=== PATIENT | male | born 1935 | race Caucasian/White ===

== ENCOUNTER 2019-11-15 00:32 | Emergency (ER) | payer BC ==
[~2019-11-15] VITALS: Ht 180.3 cm; Wt 77.2 kg
[~2019-11-15 00:32] MED LIST: CEPH-571 PO; HYDR-4383 PO
[2019-11-15] MEDS ORDERED: LIDOcaine Viscous 15ml cup MM PRN (01:10)
--- NOTE | 2019-11-15 01:40 | NUR ---
PT AMBULATED TO BATHROOM WITH NO DIFFICULTY
[2019-11-15 02:34] VITALS: BP 171/73
== END 2019-11-15 02:38 | disposition home or self-care (01) ==
LOC: ER 00:33
DX: R13.10 Dysphagia, unspecified (principal); I25.10 Atherosclerotic heart disease of native coronary artery without angina pectoris; E78.00 Pure hypercholesterolemia, unspecified; Z79.2 Long term (current) use of antibiotics; Z79.899 Other long term (current) drug therapy; Z98.61 Coronary angioplasty status
CPT/HCPCS: 70360; 71046; 99282; 99283

== ENCOUNTER 2021-09-28 04:52 | Emergency (ER) | payer BC ==
[~2021-09-28] VITALS: Ht 180.3 cm; Wt 70.5 kg
[2021-09-28 05:54] LABS: BASOPHILS # (AUTO) 0.1 X10'3 (0-0.2); BASOPHILS % (AUTO) 0.9 % (0-1); EOSINOPHILS % (AUTO) 0 % (0-6); HEMATOCRIT 29.6 % (42.0-52.0); HEMOGLOBIN 10.3 g/dl (14.0-17.9); LYMPHOCYTES # (AUTO) 1.4 X10'3 (1.1-4.8); LYMPHOCYTES % (AUTO) 16.9 % (21-51); MEAN CORPUSCULAR HEMOGLOBIN 34.9 PG (27.0-31.0); MEAN CORPUSCULAR HGB CONC 34.6 g/dL (33.0-36.5); MEAN CORPUSCULAR VOLUME 100.9 FL (78-98); MEAN PLATELET VOLUME 9.1 FL (7.4-10.4); MONOCYTES # (AUTO) 0.8 X10'3 (0-0.9); MONOCYTES % (AUTO) 9.5 % (2-12); NEUTROPHILS # (AUTO) 5.9 X10'3 (1.8-7.7); NEUTROPHILS % (AUTO) 72.7 % (42-75); PLATELET COUNT 205 X10'3 (140-440); RED BLOOD COUNT 2.93 X10'6 (4.70-6.10); WHITE BLOOD COUNT 8.1 X10'3 (4.5-11.0)
[2021-09-28 06:01] LABS: ALBUMIN 3.1 G/DL (3.4-5.0); ANION GAP 12 (8-16); BLOOD UREA NITROGEN 19 MG/DL (7-18); CALCIUM 8.2 MG/DL (8.5-10.1); CHLORIDE 105 MMOL/L (99-107); CREATININE 1.27 MG/DL (0.60-1.10); GLUCOSE 104 MG/DL (70-104); POTASSIUM 3.8 MMOL/L (3.5-5.1); SODIUM 144 MMOL/L (135-145); TOTAL CARBON DIOXIDE 26.8 MMOL/L (24-32); eGFR 54 ML/MIN
[2021-09-28 06:02] LABS: PARTIAL THROMBOPLASTIN TIME 26 SECONDS (22-32)
[2021-09-28 08:00] VITALS: BP 139/64
--- NOTE | 2021-09-28 09:21 | NUR ---
MENTAL HEALTH ROSELIA BUNCH AT BEDSIDE.
--- NOTE | 2021-09-28 12:28 | NUR ---
CALL TO CATHERINE MCNEILL FOR UPDATE ON WHEELCHAIR AND RIDE HOME FOR PATIENT. PER CHARITO CM IS ON LUNCH AND WILL CALL BACK WITH UPDATE.
--- NOTE | 2021-09-28 12:42 | NUR ---
SPOKE WITH CHARITO ALEXANDER WHO STATED THE WC AND RIDE HOME STILL PENDING.
--- NOTE | 2021-09-28 13:25 | NUR ---
GAVE PATIENT EXTRA HEART HEALTHY MEAL TRAY WHILE WAITING FOR TRANSPORT.
--- NOTE | 2021-09-28 15:01 | NUR ---
SPOKE WITH EMILY GIBBS WHO STATED PATIENT WAITING WC AND THEN SHE WILL WORK ON TRANSPORTATION HOME.
--- NOTE | 2021-09-28 15:28 | NUR ---
WHEELCHAIR DELIVERED TO BEDSIDE, PATIENT EDUCATED ON USE OF WHEELCHAIR, VERBALIZED UNDERSTANDING, BERNIE DIAZ MADE AWARE AND WILL WORK ON TRANSPORTATION HOME.
--- NOTE | 2021-09-28 15:48 | NUR ---
AT 1800 [facility] WILL BE ARIVING TO TRANSPORT PT
--- NOTE | 2021-09-28 16:02 | NUR ---
Patient has transport set up with [facility] at 1800, notified primary nurse
--- NOTE | 2021-09-28 16:02 | NUR ---
Patient w/c delivered at bedside
== END 2021-09-28 17:16 | disposition home or self-care (01) ==
LOC: ER 04:53
DX: M25.551 Pain in right hip (principal); R42 Dizziness and giddiness; I25.10 Atherosclerotic heart disease of native coronary artery without angina pectoris; E78.00 Pure hypercholesterolemia, unspecified; Z85.038 Personal history of other malignant neoplasm of large intestine; Z98.890 Other specified postprocedural states; Z79.2 Long term (current) use of antibiotics
CPT/HCPCS: 36415; 71045; 73502; 80048; 85025; 85610; 85730; 99285

== ENCOUNTER 2022-10-06 12:20 | Inpatient (IN) | payer BC ==
[~2022-10-06] VITALS: Ht 180.3 cm; Wt 66.8 kg
[2022-10-06] MEDS ORDERED: morphine 4 MG/ML inj SYRINge IV ONE (14:10)
[2022-10-06] MEDS ORDERED: ondansetron/PF 4mg/2ml inj IV ONE (14:10)
[2022-10-06 14:41] LABS: BASOPHILS % (AUTO) 0.5 % (0-1); EOSINOPHILS # (AUTO) 0.1 X10'3 (0-0.9); EOSINOPHILS % (AUTO) 1.2 % (0-6); HEMATOCRIT 29.7 % (42.0-52.0); LYMPHOCYTES # (AUTO) 1.7 X10'3 (1.1-4.8); LYMPHOCYTES % (AUTO) 19.1 % (21-51); MEAN CORPUSCULAR HEMOGLOBIN 34.5 PG (27.0-31.0); MEAN CORPUSCULAR HGB CONC 33.9 g/dL (33.0-36.5); MEAN PLATELET VOLUME 9.5 FL (7.4-10.4); MONOCYTES # (AUTO) 0.6 X10'3 (0-0.9); MONOCYTES % (AUTO) 6.5 % (2-12); NEUTROPHILS # (AUTO) 6.4 X10'3 (1.8-7.7); NEUTROPHILS % (AUTO) 72.7 % (42-75); PLATELET COUNT 159 X10'3 (140-440); RED BLOOD COUNT 2.91 X10'6 (4.70-6.10); RED CELL DISTRIBUTION WIDTH 12.3 % (11.5-14.5); WHITE BLOOD COUNT 8.8 X10'3 (4.5-11.0)
[2022-10-06 14:58] LABS: APTT 25 SECONDS (22-32)
[2022-10-06 15:14] LABS: ALANINE AMINOTRANSFERASE 23 U/L (12-78); ALBUMIN 3.6 G/DL (3.4-5.0); ALBUMIN/GLOBULIN RATIO 1.1 (1.1-1.5); ALKALINE PHOSPHATASE 90 IU/L (46-116); ANION GAP 5 (8-16); ASPARTATE AMINO TRANSFERASE 24 U/L (10-37); BILIRUBIN,TOTAL 0.5 MG/DL (0.1-1.0); BLOOD UREA NITROGEN 33 MG/DL (7-18); BUN/CREATININE RATIO 20.5 (5.4-32.0); CALCIUM 8.8 MG/DL (8.5-10.1); CHLORIDE 103 MMOL/L (99-107); CREATININE 1.61 MG/DL (0.60-1.10); GLUCOSE 116 MG/DL (70-104); POTASSIUM 4.4 MMOL/L (3.5-5.1); SODIUM 140 MMOL/L (135-145); TOTAL CARBON DIOXIDE 31.6 MMOL/L (24-32); eGFR 41 ML/MIN
[2022-10-06] MEDS ORDERED: LEVO50TA8 PO (16:09)
[2022-10-06] MEDS ORDERED: LISI1TAB53 PO (16:09)
[2022-10-06] MEDS ORDERED: CARV6.2553 PO (16:09)
[2022-10-06] MEDS ORDERED: morphine 2 MG/ML inj. syringe IV PRN ×2 (16:20)
[2022-10-06] MEDS ORDERED: acetaminophen 325mg tablet PO PRN (16:20)
[2022-10-06] MEDS ORDERED: ondansetron/PF 4mg/2ml inj IV PRN (16:20)
[2022-10-06] MEDS ORDERED: mag hydrox/Alum hydrox/simeth 30ml oral suspension PO PRN (16:20)
[2022-10-06] MEDS ORDERED: LIDOcaine 2% 10ml TOPICAL JELLY (Urojet) TP ONE (17:55)
[2022-10-06 18:24] LABS: CLARITY,URINE CLEAR (Clear); COLOR,URINE YELLOW (Yellow); GLUCOSE, URINE NEGATIVE (Neg); KETONES,URINE TRACE mg/dl (Neg); LEUKOCYTE ESTERASE ,URINE NEGATIVE (Neg); NITRITES, URINE NEGATIVE (Neg); OCCULT BLOOD,URINE MODERATE (Neg); PH,URINE 6.5 (4.8-8.0); PROTEIN,URINE NEGATIVE (Neg); UROBILINOGEN,URINE 0.2 E.U/dL (0.2-1.0)
[2022-10-06 18:36] LABS: UA COLLECTION TYPE STRAIGHT CATH
[2022-10-06 18:41] LABS: BACTERIA,URINE FEW /HPF (Neg); RBC,URINE 20-50 /HPF (0-2); SQUAMOUS EPITHELIAL CELL,UR FEW /LPF (FEW)
[2022-10-06] MEDS: HYDROcodone/acetaminophen 5mg/325mg tablet PO PRN ×2 (18:43→22:51)
[2022-10-06] MEDS: docusate sod 100mg capsule PO SCH (18:43)
[2022-10-06] MEDS: carvedilol 6.25mg tablet PO SCH (18:44)
--- NOTE | 2022-10-06 19:07 | NUR ---
PT ATE 90% OF CYNTHIA MEAL FOR A TOTAL OF 40 GM OF CARB
[2022-10-06 20:45] VITALS: BP 131/63
--- NOTE | 2022-10-06 20:45 | NUR ---
PATIENT ADMITTED TO ROOM 340B FROM ER FOR HIP FRACTURE. PLACED COMFORTABLE IN BED. VITAL SIGNS TAKEN AND RECORDED.
[2022-10-06 23:00] VITALS: BP 111/50
[2022-10-07] VITALS (25 sets, daily range): BP systolic 113–174; BP diastolic 55–109
--- NOTE | 2022-10-07 06:25 | NUR ---
Problems reprioritized. Patient report given, questions answered & plan of care reviewed with JAQUAN ANTHONY.
--- NOTE | 2022-10-07 06:30 | NUR ---
Patient in room [facility]JON 340. I have received report from Ozzy ANTHONY and had the opportunity to ask questions and assume patient care.
[2022-10-07 06:59] LABS: BASOPHILS # (AUTO) 0.1 X10'3 (0-0.2); BASOPHILS % (AUTO) 0.6 % (0-1); EOSINOPHILS # (AUTO) 0.3 X10'3 (0-0.9); EOSINOPHILS % (AUTO) 3.4 % (0-6); HEMATOCRIT 26.4 % (42.0-52.0); LYMPHOCYTES # (AUTO) 1.9 X10'3 (1.1-4.8); LYMPHOCYTES % (AUTO) 20.1 % (21-51); MEAN CORPUSCULAR HEMOGLOBIN 34.6 PG (27.0-31.0); MEAN CORPUSCULAR HGB CONC 34.2 g/dL (33.0-36.5); MEAN CORPUSCULAR VOLUME 101.4 FL (78-98); MEAN PLATELET VOLUME 9.5 FL (7.4-10.4); MONOCYTES # (AUTO) 0.8 X10'3 (0-0.9); MONOCYTES % (AUTO) 8.5 % (2-12); NEUTROPHILS # (AUTO) 6.5 X10'3 (1.8-7.7); NEUTROPHILS % (AUTO) 67.4 % (42-75); PLATELET COUNT 127 X10'3 (140-440); RED BLOOD COUNT 2.61 X10'6 (4.70-6.10); RED CELL DISTRIBUTION WIDTH 11.9 % (11.5-14.5); WHITE BLOOD COUNT 9.6 X10'3 (4.5-11.0)
[2022-10-07 07:09] LABS: ALBUMIN 3.1 G/DL (3.4-5.0); ANION GAP 5 (8-16); BLOOD UREA NITROGEN 33 MG/DL (7-18); BUN/CREATININE RATIO 20.5 (5.4-32.0); CALCIUM 8.6 MG/DL (8.5-10.1); CHLORIDE 103 MMOL/L (99-107); CREATININE 1.61 MG/DL (0.60-1.10); GLUCOSE 111 MG/DL (70-104); POTASSIUM 4.1 MMOL/L (3.5-5.1); SODIUM 137 MMOL/L (135-145); TOTAL CARBON DIOXIDE 29.2 MMOL/L (24-32); eGFR 41 ML/MIN
[2022-10-07] MEDS: docusate sod 100mg capsule PO SCH ×2 (07:35→19:43)
[2022-10-07] MEDS: levoTHYROXINE 25mcg tablet PO SCH (07:35)
[2022-10-07] MEDS: lisinopril 20mg tablet PO SCH (07:36)
[2022-10-07] MEDS: carvedilol 6.25mg tablet PO SCH ×2 (07:36→19:42)
[2022-10-07] MEDS: HYDROchlorothiazide 25mg tablet PO SCH (07:36)
[2022-10-07] MEDS ORDERED: proCHLORperazine 10 MG/2 ml inj IV PRN (12:50)
[2022-10-07] MEDS ORDERED: ringers solution, lacted 1,000 ML IV SCH (12:50)
[2022-10-07] MEDS ORDERED: hydrALAZINE 20mg/ml inj. IV PRN (12:50)
[2022-10-07] MEDS ORDERED: HYDROmorphone/PF 0.2 MG/ML SYRINGE IV PRN ×2 (12:50)
[2022-10-07] MEDS ORDERED: ondansetron/PF 4mg/2ml inj IV PRN (12:50)
[2022-10-07] MEDS ORDERED: acetaminophen 1,000mg/100ml IV 100 ML IV PRN (12:50)
[2022-10-07] MEDS ORDERED: meperidine/PF 25mg/ml syringe IV PRN (12:50)
[2022-10-07] MEDS ORDERED: labetalol 20mg/4ml (5mg/ml) syringe IV PRN (12:50)
[2022-10-07] MEDS ORDERED: morphine 4 MG/ML inj SYRINge IV PRN (12:50)
[2022-10-07] MEDS ORDERED: morphine 2 MG/ML inj. syringe IV PRN (12:50)
[2022-10-07] MEDS ORDERED: vancomycin 1,000mg inj ONE (14:09)
[2022-10-07] MEDS ORDERED: sevoflurane 250ml liquid IH ONE (14:46)
[2022-10-07] MEDS ORDERED: FENTANYL CITRATE/PF 50 MCG/1 ML VIAL ONE ×2 (14:54→16:04)
--- NOTE | 2022-10-07 14:55 | NUR ---
LOGGING CREW SUPERVISOR documentation: I have reviewed and agree with all interventions, assessments performed and documented by Anabella Varma LVN.
[2022-10-07] MEDS ORDERED: propofol inj 20 ML IV ONE (15:13)
[2022-10-07] MEDS ORDERED: midazolam 1 mg/ML 2ml injection ONE (15:13)
[2022-10-07] MEDS ORDERED: ceFAZolin 1000mg inj ONE ×3 (15:13)
[2022-10-07] MEDS ORDERED: LIDOcaine 2% (20mg/ml) 5ml vial ONE (15:13)
[2022-10-07] MEDS ORDERED: ePHEDrine 50MG/ML INJ. ONE (15:13)
[2022-10-07] MEDS ORDERED: tranexamic acid 100mg/ml inj. ONE (15:16)
[2022-10-07] MEDS ORDERED: dexamethasone sod phosphate 4mg/ml inj. ONE (15:16)
[2022-10-07] MEDS ORDERED: ondansetron/PF 4mg/2ml inj ONE (15:16)
--- NOTE | 2022-10-07 16:44 | NUR ---
Received from OR via HOSPITAL BED, accompanied by Anesthesiologist DR STODDARD and report given by Anesthesiolgist. PT PRESENTS WITH PIV 20G RIGHT FOREARM, LEFT KNEE BRACE WITH ISLAND DRESSING ON LEFT HIP. VSS. Addendum: 10/07/22 at 1658 by Melissa Clarke RN, RN Amended: Links added.
--- NOTE | 2022-10-07 18:55 | NUR ---
Patient arrived back to floor from surgery in his bed. Alert, quiet, post op VS initiated.and dinner order placed. In no obvious pain or distress at this time.
--- NOTE | 2022-10-07 19:06 | NUR ---
Report called to receiving nurse TAMANNA ANTHONY. Transferred via HOSPITAL BED TO ROOM 340B. PT LEFT Belongings IN PT ROOM. BED IN LOW LOCKED POSITION WITH CALL LIGHT IN REACH. ADMIN ASSISTANT DOING POST OP VITALS, TAMANNA ANTHONY AT BEDSIDE INTRODUCING HERSELF. PT CHART AT NURSES STATION. Special Issues communicated to receiving nurse. Addendum: 10/07/22 at 1912 by Melissa Clarke RN RN Amended: Links added.
[2022-10-07] MEDS: HYDROcodone/acetaminophen 5mg/325mg tablet PO PRN (19:40)
[2022-10-07] MEDS: normal saline 1000ml 1,000 ML IV SCH (19:44)
[2022-10-07] MEDS: enoxaparin 30mg/0.3ml syringe SUBCUT SCH (19:47)
[2022-10-08] MEDS: HYDROcodone/acetaminophen 5mg/325mg tablet PO PRN ×2 (00:23→07:47)
--- NOTE | 2022-10-08 06:15 | NUR ---
Problems reprioritized. Patient report given, questions answered & plan of care reviewed with Anabella LEON.
[2022-10-08 07:34] LABS: BASOPHILS % (AUTO) 0.1 % (0-1); EOSINOPHILS % (AUTO) 0.1 % (0-6); HEMATOCRIT 25.4 % (42.0-52.0); HEMOGLOBIN 8.5 g/dl (14.0-17.9); LYMPHOCYTES # (AUTO) 1.3 X10'3 (1.1-4.8); LYMPHOCYTES % (AUTO) 9.3 % (21-51); MEAN CORPUSCULAR HEMOGLOBIN 33.7 PG (27.0-31.0); MEAN CORPUSCULAR HGB CONC 33.4 g/dL (33.0-36.5); MEAN CORPUSCULAR VOLUME 101.1 FL (78-98); MEAN PLATELET VOLUME 9.4 FL (7.4-10.4); MONOCYTES # (AUTO) 1.5 X10'3 (0-0.9); MONOCYTES % (AUTO) 10.4 % (2-12); NEUTROPHILS # (AUTO) 11.3 X10'3 (1.8-7.7); NEUTROPHILS % (AUTO) 80.1 % (42-75); PLATELET COUNT 131 X10'3 (140-440); RED BLOOD COUNT 2.51 X10'6 (4.70-6.10); WHITE BLOOD COUNT 14.1 X10'3 (4.5-11.0)
[2022-10-08] MEDS: carvedilol 6.25mg tablet PO SCH ×2 (07:47→19:09)
[2022-10-08] MEDS: docusate sod 100mg capsule PO SCH ×2 (07:48→19:09)
[2022-10-08] MEDS: lisinopril 20mg tablet PO SCH (07:48)
[2022-10-08] MEDS: levoTHYROXINE 25mcg tablet PO SCH (07:48)
[2022-10-08] MEDS: HYDROchlorothiazide 25mg tablet PO SCH (07:48)
[2022-10-08] MEDS: normal saline 1000ml 1,000 ML IV SCH ×2 (07:49→22:15)
[2022-10-08 09:47] LABS: ANION GAP 10 (8-16); BLOOD UREA NITROGEN 37 MG/DL (7-18); BUN/CREATININE RATIO 19.7 (5.4-32.0); CALCIUM 8.4 MG/DL (8.5-10.1); CHLORIDE 102 MMOL/L (99-107); CREATININE 1.88 MG/DL (0.60-1.10); GLUCOSE 119 MG/DL (70-104); POTASSIUM 3.8 MMOL/L (3.5-5.1); SODIUM 137 MMOL/L (135-145); TOTAL CARBON DIOXIDE 24.8 MMOL/L (24-32); eGFR 34 ML/MIN
--- NOTE | 2022-10-08 17:47 | NUR ---
MATERIALS RESEARCH ENGINEER documentation: I have reviewed and agree with all interventions, assessments performed and documented by Adina Varma LVN.
[2022-10-08 18:00] VITALS: BP 140/66
--- NOTE | 2022-10-08 18:34 | NUR ---
Patient in room DEJON 360. I have received report from Adina and had the opportunity to ask questions and assume patient care.
[2022-10-08] MEDS: enoxaparin 30mg/0.3ml syringe SUBCUT SCH (19:09)
[2022-10-08 22:00] VITALS: BP 106/46
[2022-10-09] VITALS (9 sets, daily range): BP systolic 85–121; BP diastolic 37–55
[2022-10-09] MEDS: normal saline 1000ml 1,000 ML IV SCH (01:29)
[2022-10-09] MEDS: magnesium hydroxide 30ml (MOM) UD suspension PO PRN ×2 (04:57→20:35)
--- NOTE | 2022-10-09 06:02 | NUR ---
Problems reprioritized. Patient report given, questions answered & plan of care reviewed with
--- NOTE | 2022-10-09 06:08 | NUR ---
Problems reprioritized. Patient report given, questions answered & plan of care reviewed with
[2022-10-09 06:35] LABS: BASOPHILS % (AUTO) 0.4 % (0-1); EOSINOPHILS # (AUTO) 0.1 X10'3 (0-0.9); LYMPHOCYTES # (AUTO) 1.7 X10'3 (1.1-4.8); LYMPHOCYTES % (AUTO) 16.8 % (21-51); MEAN CORPUSCULAR HEMOGLOBIN 34.5 PG (27.0-31.0); MEAN CORPUSCULAR HGB CONC 34.3 g/dL (33.0-36.5); MEAN CORPUSCULAR VOLUME 100.7 FL (78-98); MEAN PLATELET VOLUME 9.9 FL (7.4-10.4); MONOCYTES # (AUTO) 1.1 X10'3 (0-0.9); MONOCYTES % (AUTO) 10.5 % (2-12); NEUTROPHILS # (AUTO) 7.4 X10'3 (1.8-7.7); NEUTROPHILS % (AUTO) 71.3 % (42-75); PLATELET COUNT 108 X10'3 (140-440); RED BLOOD COUNT 1.84 X10'6 (4.70-6.10); WHITE BLOOD COUNT 10.3 X10'3 (4.5-11.0)
[2022-10-09 06:41] LABS: ALBUMIN 2.5 G/DL (3.4-5.0); ANION GAP 7 (8-16); BLOOD UREA NITROGEN 40 MG/DL (7-18); CALCIUM 7.9 MG/DL (8.5-10.1); CHLORIDE 105 MMOL/L (99-107); CREATININE 1.82 MG/DL (0.60-1.10); GLUCOSE 116 MG/DL (70-104); POTASSIUM 3.7 MMOL/L (3.5-5.1); SODIUM 137 MMOL/L (135-145); TOTAL CARBON DIOXIDE 25.2 MMOL/L (24-32); eGFR 35 ML/MIN
[2022-10-09 06:47] LABS: HEMATOCRIT 18.5 % (42.0-52.0); HEMOGLOBIN 6.4 g/dl (14.0-17.9)
--- NOTE | 2022-10-09 07:01 | NUR ---
Agree with Erin HOBBIES AND CRAFTS SALES REPRESENTATIVE assessment except where I documented my findings.
--- NOTE | 2022-10-09 07:16 | NUR ---
PAGER ID: [phone] MESSAGE: Pt Yonathan Perry RM 360B Critical HGB 6.4 HCT 18.5, also need blood consent. [facility] [id number]
--- NOTE | 2022-10-09 08:03 | NUR ---
PAGER ID: [phone] MESSAGE: Repeat page Pt Yonathan Perry RM 360B Critical HGB 6.4 HCT 18.5, also need blood consent. [facility] 6599
[2022-10-09] MEDS: docusate sod 100mg capsule PO SCH ×2 (08:06→20:30)
[2022-10-09] MEDS: HYDROchlorothiazide 25mg tablet PO SCH (08:06)
[2022-10-09] MEDS: lisinopril 20mg tablet PO SCH (08:07)
[2022-10-09] MEDS: levoTHYROXINE 25mcg tablet PO SCH (08:07)
[2022-10-09] MEDS: carvedilol 6.25mg tablet PO SCH ×2 (08:07→20:30)
--- NOTE | 2022-10-09 10:04 | NUR ---
notified of pt BP of 86/38 and temp of 99.8 prior to blood transfusion start, instructed to start transfusion. Transfusion started at 0958 With assist of lost charge card clerk
[2022-10-09 14:58] LABS: HEMOGLOBIN 7.8 g/dl (14.0-17.9); MEAN CORPUSCULAR HEMOGLOBIN 33.2 PG (27.0-31.0); MEAN CORPUSCULAR HGB CONC 33.7 g/dL (33.0-36.5); MEAN CORPUSCULAR VOLUME 98.5 FL (78-98); MEAN PLATELET VOLUME 9.6 FL (7.4-10.4); PLATELET COUNT 112 X10'3 (140-440); RED BLOOD COUNT 2.33 X10'6 (4.70-6.10); RED CELL DISTRIBUTION WIDTH 13.2 % (11.5-14.5); WHITE BLOOD COUNT 10.4 X10'3 (4.5-11.0)
--- NOTE | 2022-10-09 15:50 | NUR ---
PAGER ID: [phone] MESSAGE: DANIEL woody rm 360B up to HGB 7.8 HCT 18.5
--- NOTE | 2022-10-09 18:15 | NUR ---
I have reviewed and agree with all interventions, assessments performed, and documented by Adina Penny LVN.
[2022-10-09] MEDS: enoxaparin 30mg/0.3ml syringe SUBCUT SCH (20:00)
--- NOTE | 2022-10-10 | NUR ---
Patient in room DEJON 360. I have received report from CAROLYN Holden and had the opportunity to ask questions and assume patient care. Addendum: 10/10/22 at 0005 by Alon Parra RN Amended: Links added.
--- NOTE | 2022-10-10 00:02 | NUR ---
Problems reprioritized. Patient report given, questions answered & plan of care reviewed with Diana ANTHONY.
--- NOTE | 2022-10-10 00:04 | NUR ---
AGREE WITH REWINDER OPERATOR PHYSICAL ASSESSMENT CHARTED.
--- NOTE | 2022-10-10 00:35 | NUR ---
Pt thought he had a bm, bright care don passed flatus no bm, small bm smear. poc with pillows. Addendum: 10/10/22 at 0109 by Alon Parra RN Amended: Links added.
[2022-10-10] MEDS: normal saline 1000ml 1,000 ML IV SCH ×2 (02:49→14:15)
--- NOTE | 2022-10-10 02:49 | NUR ---
repositioned, pain medication offered, but pt refused. states he is not having pain. Addendum: 10/10/22 at 0250 by Alon Parra RN Amended: Links added.
--- NOTE | 2022-10-10 05:40 | NUR ---
no void pt states can be straight cathed, cacheter inserted 350ml return and still draining, left in to comopletely drain than will remove. Addendum: 10/10/22 at 0541 by Alon Parra RN Amended: Links added.
[2022-10-10 06:00] VITALS: BP 121/54
[2022-10-10 06:32] LABS: ALBUMIN 2.3 G/DL (3.4-5.0); ANION GAP 6 (8-16); BLOOD UREA NITROGEN 38 MG/DL (7-18); BUN/CREATININE RATIO 26.2 (5.4-32.0); CALCIUM 8.1 MG/DL (8.5-10.1); CHLORIDE 106 MMOL/L (99-107); CREATININE 1.45 MG/DL (0.60-1.10); GLUCOSE 124 MG/DL (70-104); POTASSIUM 3.7 MMOL/L (3.5-5.1); SODIUM 139 MMOL/L (135-145); TOTAL CARBON DIOXIDE 26.8 MMOL/L (24-32); eGFR 46 ML/MIN
--- NOTE | 2022-10-10 06:38 | NUR ---
Problems reprioritized. Patient report given, questions answered & plan of care reviewed with RAJ Medina. Addendum: 10/10/22 at 0638 by Alon Parra RN Amended: Links added.
[2022-10-10 06:46] LABS: BASOPHILS % (AUTO) 0.4 % (0-1); EOSINOPHILS # (AUTO) 0.2 X10'3 (0-0.9); HEMOGLOBIN 7.3 g/dl (14.0-17.9); LYMPHOCYTES # (AUTO) 1.4 X10'3 (1.1-4.8); LYMPHOCYTES % (AUTO) 13.2 % (21-51); MEAN CORPUSCULAR HGB CONC 34.6 g/dL (33.0-36.5); MEAN CORPUSCULAR VOLUME 98.5 FL (78-98); MEAN PLATELET VOLUME 10.1 FL (7.4-10.4); MONOCYTES # (AUTO) 0.9 X10'3 (0-0.9); MONOCYTES % (AUTO) 8.2 % (2-12); NEUTROPHILS # (AUTO) 8.1 X10'3 (1.8-7.7); NEUTROPHILS % (AUTO) 76.2 % (42-75); PLATELET COUNT 114 X10'3 (140-440); RED BLOOD COUNT 2.14 X10'6 (4.70-6.10); RED CELL DISTRIBUTION WIDTH 13.2 % (11.5-14.5); WHITE BLOOD COUNT 10.6 X10'3 (4.5-11.0)
[2022-10-10 06:49] LABS: HEMATOCRIT 21.1 % (42.0-52.0)
--- NOTE | 2022-10-10 06:54 | NUR ---
Patient in room DEJON 360. I have received report from MOHAMUD ANTHONY and had the opportunity to ask questions and assume patient care.
--- NOTE | 2022-10-10 07:11 | NUR ---
Page Sent promotional table spacer PAGER ID: [phone] MESSAGE: 360 B TOMI ONEAL HAS CRITICAL H/H OF 7.3.1 THANKS MELISSA
[2022-10-10] MEDS: docusate sod 100mg capsule PO SCH ×2 (07:49→20:47)
[2022-10-10] MEDS: levoTHYROXINE 25mcg tablet PO SCH (07:50)
[2022-10-10] MEDS: lisinopril 20mg tablet PO SCH (07:50)
[2022-10-10] MEDS: HYDROchlorothiazide 25mg tablet PO SCH (07:50)
[2022-10-10] MEDS: carvedilol 6.25mg tablet PO SCH ×2 (07:50→19:58)
--- NOTE | 2022-10-10 09:30 | NUR ---
Page Sent promotional table spacer PAGER ID: [phone] MESSAGE: Page Sent PAGER ID: [phone] MESSAGE: 360 B TOMI ONEAL HAS CRITICAL H/H OF 7.3.1 THANKS MELISSA 2ND PAGE
[2022-10-10 10:00] VITALS: BP 105/45
--- NOTE | 2022-10-10 10:31 | NUR ---
Page Sent PAGER ID: [phone] MESSAGE: 360 B HARTLY PT IS POSITIVE ORTHOSTATICS WELL. MELISSA [id number]
[2022-10-10 11:12] VITALS: BP_SYST 123; BP_SYST 80; BP_DIAS 46; BP_DIAS 62; BP_DIAS 73
--- NOTE | 2022-10-10 11:40 | NUR ---
TALKED TO DR TELLO HE IS AWARE OF PTS H/H AND WAS NOT CONCERED SAID WE WILL SEE WHAT IT IS WITH LAB DRAWS TOMORROW. ALSO MADE AWARE OF ORTHOSTATIC POSITIVE
[2022-10-10 18:00] VITALS: BP 99/54
[2022-10-10] MEDS: enoxaparin 30mg/0.3ml syringe SUBCUT SCH (19:58)
[2022-10-10] MEDS: magnesium hydroxide 30ml (MOM) UD suspension PO PRN (20:47)
[2022-10-10] MEDS: HYDROcodone/acetaminophen 5mg/325mg tablet PO PRN (20:50)
--- NOTE | 2022-10-10 20:53 | NUR ---
pt had a pain of 04/09 i gave him a norco 5
[2022-10-10 22:00] VITALS: BP 157/73
--- NOTE | 2022-10-11 02:52 | NUR ---
Problems reprioritized. Patient report given, questions answered & plan of care reviewed with Katina celeste.
[2022-10-11] MEDS: normal saline 1000ml 1,000 ML IV SCH (03:35)
[2022-10-11] MEDS: HYDROcodone/acetaminophen 5mg/325mg tablet PO PRN (04:04)
[2022-10-11 05:43] LABS: BASOPHILS % (AUTO) 0.3 % (0-1); EOSINOPHILS # (AUTO) 0.2 X10'3 (0-0.9); EOSINOPHILS % (AUTO) 2.3 % (0-6); HEMOGLOBIN 7.1 g/dl (14.0-17.9); LYMPHOCYTES # (AUTO) 1.7 X10'3 (1.1-4.8); MEAN CORPUSCULAR HEMOGLOBIN 33.8 PG (27.0-31.0); MEAN CORPUSCULAR VOLUME 99.3 FL (78-98); MEAN PLATELET VOLUME 9.7 FL (7.4-10.4); MONOCYTES # (AUTO) 0.8 X10'3 (0-0.9); MONOCYTES % (AUTO) 7.7 % (2-12); NEUTROPHILS # (AUTO) 7.2 X10'3 (1.8-7.7); NEUTROPHILS % (AUTO) 72.7 % (42-75); PLATELET COUNT 138 X10'3 (140-440); WHITE BLOOD COUNT 9.8 X10'3 (4.5-11.0)
[2022-10-11 05:56] LABS: ALBUMIN 2.3 G/DL (3.4-5.0); BLOOD UREA NITROGEN 36 MG/DL (7-18); BUN/CREATININE RATIO 25.4 (5.4-32.0); CREATININE 1.42 MG/DL (0.60-1.10); GLUCOSE 118 MG/DL (70-104); TOTAL CARBON DIOXIDE 29.9 MMOL/L (24-32); eGFR 47 ML/MIN
[2022-10-11 06:00] VITALS: BP 171/66
[2022-10-11 06:01] LABS: HEMATOCRIT 20.9 % (42.0-52.0)
[2022-10-11 06:03] LABS: ANION GAP 4 (8-16); CHLORIDE 106 MMOL/L (99-107); POTASSIUM 3.6 MMOL/L (3.5-5.1); SODIUM 140 MMOL/L (135-145)
--- NOTE | 2022-10-11 06:20 | NUR ---
PAGER ID: [phone] MESSAGE: Rehana Surg 5471 Re: Orlando Huff Please call Re: critical H&H 7.11/19.
--- NOTE | 2022-10-11 06:56 | NUR ---
Problems reprioritized. Patient report given, questions answered & plan of care reviewed with
[2022-10-11] MEDS: levoTHYROXINE 25mcg tablet PO SCH (07:13)
[2022-10-11] MEDS: carvedilol 6.25mg tablet PO SCH ×2 (07:13→20:00)
[2022-10-11] MEDS: lisinopril 20mg tablet PO SCH (07:13)
[2022-10-11] MEDS: HYDROchlorothiazide 25mg tablet PO SCH (07:13)
[2022-10-11] MEDS: JUVEN Smoothie Arginine/Glut./Ca2+Bmb (Juven 19.3pkt) 240ml cup PO SCH (07:30)
[2022-10-11] MEDS: docusate sod 100mg capsule PO SCH ×2 (07:33→20:00)
[2022-10-11 10:00] VITALS: BP 97/43
--- NOTE | 2022-10-11 10:21 | NUR ---
Initial: Pt admitted w/ L femoral neck fx s/p L hip hemiarthroplasty this admit per EMR. Currently on Heart Healthy diet w/ avg intake 52% of meals partially meeting est needs. Will recommend Jaquan smoothies BID to assist w/ surgical wound healing. Pt noted to be A&O x 1 and confused. LBM 10/10 receiving routine and PRN bowel care. Will continue to monitor. Recs; 1. Liberalize to Regular diet 2. Jaquan Smoothies BIDBD: pending MD verification 3. Bowel care per rx 4. Weekly wts Addendum: 10/11/22 at [address] Amended: Links added.
[2022-10-11 18:00] VITALS: BP 145/58
--- NOTE | 2022-10-11 18:23 | NUR ---
Problems reprioritized. Patient report given, questions answered & plan of care reviewed with Frances ANTHONY.
[2022-10-11] MEDS: enoxaparin 30mg/0.3ml syringe SUBCUT SCH (20:00)
[2022-10-11 22:00] VITALS: BP 133/61
--- NOTE | 2022-10-11 22:45 | NUR ---
PT STILL SLEEPY BUT EASILY WOKEN UP AND CONFUSED. PER SPECIAL EDUCATION PARA PROFESSIONAL GREGG PT WASN'T LIKE THIS LAST NIGHT.CALLED DR. FRANCIS IF HE WANTED TO CHECK PT FOR COVID,NO NEW ORDER.
[2022-10-12] MEDS: JUVEN Smoothie Arginine/Glut./Ca2+Bmb (Juven 19.3pkt) 240ml cup PO SCH (07:30)
[2022-10-12] MEDS: docusate sod 100mg capsule PO SCH ×2 (08:00→20:00)
[2022-10-12] MEDS: carvedilol 6.25mg tablet PO SCH ×2 (08:37→20:31)
[2022-10-12] MEDS: HYDROchlorothiazide 25mg tablet PO SCH (08:37)
[2022-10-12] MEDS: lisinopril 20mg tablet PO SCH (08:38)
[2022-10-12] MEDS: levoTHYROXINE 25mcg tablet PO SCH (08:38)
[2022-10-12] MEDS: acetaminophen 325mg tablet PO PRN ×2 (08:47→14:54)
[2022-10-12 11:00] VITALS: BP 114/53
[2022-10-12 11:49] LABS: HEMATOCRIT 24.3 % (42.0-52.0); HEMOGLOBIN 8.1 g/dl (14.0-17.9); MEAN CORPUSCULAR HEMOGLOBIN 33.1 PG (27.0-31.0); MEAN CORPUSCULAR HGB CONC 33.2 g/dL (33.0-36.5); MEAN CORPUSCULAR VOLUME 99.6 FL (78-98); MEAN PLATELET VOLUME 9.1 FL (7.4-10.4); PLATELET COUNT 196 X10'3 (140-440); RED BLOOD COUNT 2.44 X10'6 (4.70-6.10); RED CELL DISTRIBUTION WIDTH 12.7 % (11.5-14.5); WHITE BLOOD COUNT 8.7 X10'3 (4.5-11.0)
[2022-10-12 18:00] VITALS: BP 187/64
--- NOTE | 2022-10-12 18:50 | NUR ---
Problems reprioritized. Patient report given, questions answered & plan of care reviewed with Frances ANTHONY.
[2022-10-12] MEDS: enoxaparin 30mg/0.3ml syringe SUBCUT SCH (20:30)
[2022-10-12 22:00] VITALS: BP 121/55
[2022-10-13] MEDS: acetaminophen 325mg tablet PO PRN ×2 (00:47→23:40)
[2022-10-13 02:12] LABS: CLARITY,URINE SLIGHTLY CLOUDY (Clear); COLOR,URINE YELLOW (Yellow); GLUCOSE, URINE NEGATIVE (Neg); KETONES,URINE NEGATIVE (Neg); LEUKOCYTE ESTERASE ,URINE NEGATIVE (Neg); NITRITES, URINE NEGATIVE (Neg); OCCULT BLOOD,URINE SMALL (Neg); PROTEIN,URINE TRACE mg/dl (Neg); UROBILINOGEN,URINE 0.2 E.U/dL (0.2-1.0)
[2022-10-13 02:17] LABS: UA COLLECTION TYPE FOLEY CATH
[2022-10-13 02:20] LABS: SQUAMOUS EPITHELIAL CELL,UR FEW /LPF (FEW)
[2022-10-13 02:21] LABS: AMORPHOUS URATES 3+
[2022-10-13 02:23] LABS: BACTERIA,URINE NONE SEEN /HPF (Neg)
[2022-10-13 06:00] VITALS: BP 128/58
[2022-10-13] MEDS: docusate sod 100mg capsule PO SCH ×2 (08:00→19:37)
[2022-10-13] MEDS: HYDROchlorothiazide 25mg tablet PO SCH (08:12)
[2022-10-13] MEDS: carvedilol 6.25mg tablet PO SCH ×2 (08:12→19:39)
[2022-10-13] MEDS: lisinopril 20mg tablet PO SCH (08:15)
[2022-10-13] MEDS: levoTHYROXINE 25mcg tablet PO SCH (08:16)
[2022-10-13 11:00] VITALS: BP 124/56
[2022-10-13 12:19] LABS: BASOPHILS # (AUTO) 0.1 X10'3 (0-0.2); BASOPHILS % (AUTO) 0.7 % (0-1); EOSINOPHILS # (AUTO) 0.2 X10'3 (0-0.9); EOSINOPHILS % (AUTO) 1.7 % (0-6); HEMATOCRIT 23.6 % (42.0-52.0); HEMOGLOBIN 7.9 g/dl (14.0-17.9); LYMPHOCYTES # (AUTO) 1.8 X10'3 (1.1-4.8); MEAN CORPUSCULAR HEMOGLOBIN 33.6 PG (27.0-31.0); MEAN CORPUSCULAR HGB CONC 33.7 g/dL (33.0-36.5); MEAN CORPUSCULAR VOLUME 99.7 FL (78-98); MEAN PLATELET VOLUME 9.3 FL (7.4-10.4); MONOCYTES # (AUTO) 0.9 X10'3 (0-0.9); MONOCYTES % (AUTO) 9.6 % (2-12); NEUTROPHILS # (AUTO) 6.4 X10'3 (1.8-7.7); PLATELET COUNT 202 X10'3 (140-440); RED BLOOD COUNT 2.37 X10'6 (4.70-6.10); RED CELL DISTRIBUTION WIDTH 12.8 % (11.5-14.5); WHITE BLOOD COUNT 9.3 X10'3 (4.5-11.0)
[2022-10-13 18:00] VITALS: BP 157/67
--- NOTE | 2022-10-13 18:05 | NUR ---
Report to Erin LEON
--- NOTE | 2022-10-13 18:22 | NUR ---
Patient in room DEJON 360. I have received report from Layne and had the opportunity to ask questions and assume patient care.
[2022-10-13] MEDS: enoxaparin 30mg/0.3ml syringe SUBCUT SCH (19:38)
[2022-10-13 22:00] VITALS: BP 154/74
[2022-10-14 06:00] VITALS: BP 159/72
--- NOTE | 2022-10-14 06:22 | NUR ---
Problems reprioritized. Patient report given, questions answered & plan of care reviewed with
--- NOTE | 2022-10-14 06:25 | NUR ---
Patient in room DEJON 360. I have received report from Erin LEON and had the opportunity to ask questions and assume patient care.
--- NOTE | 2022-10-14 06:43 | NUR ---
REVIEWED HUMAN CAPITAL MANAGER ASSESSMENT AND IN AGREEMENT.
[2022-10-14] MEDS: JUVEN Smoothie Arginine/Glut./Ca2+Bmb (Juven 19.3pkt) 240ml cup PO SCH ×2 (07:30→19:36)
[2022-10-14 07:47] LABS: BASOPHILS # (AUTO) 0.1 X10'3 (0-0.2); BASOPHILS % (AUTO) 0.7 % (0-1); EOSINOPHILS # (AUTO) 0.2 X10'3 (0-0.9); EOSINOPHILS % (AUTO) 1.9 % (0-6); HEMATOCRIT 24.4 % (42.0-52.0); HEMOGLOBIN 8.5 g/dl (14.0-17.9); LYMPHOCYTES # (AUTO) 2.1 X10'3 (1.1-4.8); MEAN CORPUSCULAR HEMOGLOBIN 34.5 PG (27.0-31.0); MEAN CORPUSCULAR HGB CONC 34.9 g/dL (33.0-36.5); MEAN CORPUSCULAR VOLUME 98.9 FL (78-98); MEAN PLATELET VOLUME 9.3 FL (7.4-10.4); MONOCYTES # (AUTO) 0.9 X10'3 (0-0.9); MONOCYTES % (AUTO) 8.6 % (2-12); NEUTROPHILS # (AUTO) 6.9 X10'3 (1.8-7.7); NEUTROPHILS % (AUTO) 67.8 % (42-75); PLATELET COUNT 241 X10'3 (140-440); RED BLOOD COUNT 2.47 X10'6 (4.70-6.10); RED CELL DISTRIBUTION WIDTH 12.8 % (11.5-14.5); WHITE BLOOD COUNT 10.2 X10'3 (4.5-11.0)
[2022-10-14] MEDS: docusate sod 100mg capsule PO SCH ×2 (08:00→19:36)
[2022-10-14 08:07] LABS: ALBUMIN 2.7 G/DL (3.4-5.0); BLOOD UREA NITROGEN 31 MG/DL (7-18); BUN/CREATININE RATIO 23.8 (5.4-32.0); CALCIUM 8.6 MG/DL (8.5-10.1); GLUCOSE 111 MG/DL (70-104); TOTAL CARBON DIOXIDE 30.9 MMOL/L (24-32); eGFR 52 ML/MIN
[2022-10-14] MEDS: lisinopril 20mg tablet PO SCH (08:09)
[2022-10-14] MEDS: HYDROchlorothiazide 25mg tablet PO SCH (08:09)
[2022-10-14] MEDS: carvedilol 6.25mg tablet PO SCH ×2 (08:09→19:36)
[2022-10-14] MEDS: levoTHYROXINE 25mcg tablet PO SCH (08:09)
[2022-10-14 08:37] LABS: ANION GAP 7 (8-16); CHLORIDE 104 MMOL/L (99-107); POTASSIUM 3.5 MMOL/L (3.5-5.1); SODIUM 142 MMOL/L (135-145)
[2022-10-14 10:00] VITALS: BP 113/59
--- NOTE | 2022-10-14 17:27 | NUR ---
GAS WELDING EQUIPMENT MECHANIC documentation: I have reviewed and agree with all interventions, assessments performed and documented by Adina Varma LVN .
[2022-10-14 18:00] VITALS: BP 96/61
--- NOTE | 2022-10-14 18:13 | NUR ---
Problems reprioritized. Patient report given, questions answered & plan of care reviewed with Erin LEON.
[2022-10-14] MEDS: enoxaparin 30mg/0.3ml syringe SUBCUT SCH (19:31)
[2022-10-14 22:00] VITALS: BP 145/55
--- NOTE | 2022-10-15 04:07 | NUR ---
Problems and assessment reviewed and in agreement with HINGING MACHINE OPERATOR.
[2022-10-15 06:00] VITALS: BP 104/57
[2022-10-15 06:12] LABS: BASOPHILS # (AUTO) 0.1 X10'3 (0-0.2); BASOPHILS % (AUTO) 0.8 % (0-1); EOSINOPHILS # (AUTO) 0.1 X10'3 (0-0.9); EOSINOPHILS % (AUTO) 0.8 % (0-6); HEMATOCRIT 23.9 % (42.0-52.0); HEMOGLOBIN 8.2 g/dl (14.0-17.9); LYMPHOCYTES # (AUTO) 2.3 X10'3 (1.1-4.8); LYMPHOCYTES % (AUTO) 23.2 % (21-51); MEAN CORPUSCULAR HEMOGLOBIN 33.9 PG (27.0-31.0); MEAN CORPUSCULAR HGB CONC 34.2 g/dL (33.0-36.5); MEAN CORPUSCULAR VOLUME 99.1 FL (78-98); MEAN PLATELET VOLUME 8.9 FL (7.4-10.4); MONOCYTES # (AUTO) 0.8 X10'3 (0-0.9); MONOCYTES % (AUTO) 8.5 % (2-12); NEUTROPHILS # (AUTO) 6.7 X10'3 (1.8-7.7); NEUTROPHILS % (AUTO) 66.7 % (42-75); PLATELET COUNT 282 X10'3 (140-440); RED BLOOD COUNT 2.41 X10'6 (4.70-6.10); RED CELL DISTRIBUTION WIDTH 12.7 % (11.5-14.5)
--- NOTE | 2022-10-15 06:19 | NUR ---
Problems reprioritized. Patient report given, questions answered & plan of care reviewed with Elaine.
[2022-10-15 06:42] LABS: ALBUMIN 2.7 G/DL (3.4-5.0); ANION GAP 11 (8-16); BLOOD UREA NITROGEN 40 MG/DL (7-18); BUN/CREATININE RATIO 27.4 (5.4-32.0); CALCIUM 8.6 MG/DL (8.5-10.1); CHLORIDE 104 MMOL/L (99-107); CREATININE 1.46 MG/DL (0.60-1.10); GLUCOSE 97 MG/DL (70-104); POTASSIUM 3.3 MMOL/L (3.5-5.1); SODIUM 142 MMOL/L (135-145); TOTAL CARBON DIOXIDE 26.7 MMOL/L (24-32); eGFR 45 ML/MIN
[2022-10-15] MEDS: JUVEN Smoothie Arginine/Glut./Ca2+Bmb (Juven 19.3pkt) 240ml cup PO SCH ×3 (07:30→17:30)
[2022-10-15] MEDS: docusate sod 100mg capsule PO SCH ×2 (07:51→20:00)
[2022-10-15] MEDS: HYDROchlorothiazide 25mg tablet PO SCH (07:51)
[2022-10-15] MEDS: carvedilol 6.25mg tablet PO SCH ×2 (07:51→20:00)
[2022-10-15] MEDS: levoTHYROXINE 25mcg tablet PO SCH (07:51)
[2022-10-15 10:00] VITALS: BP 108/63
[2022-10-15] MEDS ORDERED: potassium Cl 20 mEq SR tablet PO PRN ×2 (11:25)
[2022-10-15] MEDS ORDERED: potassium Cl 40MEQ/1/2NS 520ml 520 ML IV PRN (11:25)
[2022-10-15] MEDS ORDERED: magnesium Cl slow-release 64mg tablet PO PRN (11:25)
[2022-10-15] MEDS ORDERED: magnesium 4gm in 100ml NS 100 ML IV PRN (11:25)
--- NOTE | 2022-10-15 16:53 | NUR ---
PATIENT NOT WILLING TO PARTICIPATE IN ANY CARE. MULTIPLE ATTEMPTS BY NURSING STAFF. PT CURRENTLY NPO. Q2H REPOSITIONING BY NURSING STAFF. POTASSIUM INFUSING PER MD ORDER. WILL CONTINUE TO MONITOR PATIENT.
[2022-10-15 18:00] VITALS: BP 122/56
--- NOTE | 2022-10-15 18:48 | NUR ---
Patient in room DEJON 360. I have received report from RAJ BARLOW and had the opportunity to ask questions and assume patient care. Addendum: 10/15/22 at 1849 by Julia Wright RN Amended: Links added.
[2022-10-15] MEDS: K and/or MAG REPLACEMENT MC SCH (20:00)
[2022-10-15] MEDS: enoxaparin 30mg/0.3ml syringe SUBCUT SCH ×2 (20:00→20:03)
[2022-10-15] MEDS: lisinopril 20mg tablet PO SCH (20:07)
[2022-10-15 21:54] LABS: MAGNESIUM 2.3 MG/DL (1.5-2.4)
[2022-10-15 22:00] VITALS: BP 153/75
[2022-10-16 06:00] VITALS: BP 155/62
--- NOTE | 2022-10-16 06:06 | NUR ---
Problems reprioritized. Patient report given, questions answered & plan of care reviewed with RAJ BARLOW. Addendum: 10/16/22 at 0607 by Julia Wright RN Amended: Links added.
[2022-10-16 06:48] LABS: BASOPHILS # (AUTO) 0.1 X10'3 (0-0.2); BASOPHILS % (AUTO) 1.2 % (0-1); EOSINOPHILS # (AUTO) 0.2 X10'3 (0-0.9); HEMATOCRIT 24.7 % (42.0-52.0); HEMOGLOBIN 8.4 g/dl (14.0-17.9); LYMPHOCYTES # (AUTO) 2.3 X10'3 (1.1-4.8); LYMPHOCYTES % (AUTO) 24.7 % (21-51); MEAN CORPUSCULAR HEMOGLOBIN 33.7 PG (27.0-31.0); MEAN CORPUSCULAR VOLUME 99.3 FL (78-98); MEAN PLATELET VOLUME 9.4 FL (7.4-10.4); MONOCYTES # (AUTO) 0.8 X10'3 (0-0.9); MONOCYTES % (AUTO) 8.5 % (2-12); NEUTROPHILS % (AUTO) 63.6 % (42-75); PLATELET COUNT 293 X10'3 (140-440); RED BLOOD COUNT 2.49 X10'6 (4.70-6.10); RED CELL DISTRIBUTION WIDTH 12.8 % (11.5-14.5); WHITE BLOOD COUNT 9.4 X10'3 (4.5-11.0)
[2022-10-16] MEDS: docusate sod 100mg capsule PO SCH ×2 (07:25→20:00)
[2022-10-16] MEDS: HYDROchlorothiazide 25mg tablet PO SCH (07:25)
[2022-10-16] MEDS: carvedilol 6.25mg tablet PO SCH ×2 (07:25→20:00)
[2022-10-16] MEDS: JUVEN Smoothie Arginine/Glut./Ca2+Bmb (Juven 19.3pkt) 240ml cup PO SCH ×2 (07:25→17:30)
[2022-10-16] MEDS: levoTHYROXINE 25mcg tablet PO SCH (07:26)
[2022-10-16] MEDS: K and/or MAG REPLACEMENT MC SCH ×3 (07:26→20:00)
[2022-10-16 07:51] LABS: ALBUMIN 2.7 G/DL (3.4-5.0); ANION GAP 11 (8-16); BLOOD UREA NITROGEN 43 MG/DL (7-18); BUN/CREATININE RATIO 32.1 (5.4-32.0); CALCIUM 8.4 MG/DL (8.5-10.1); CHLORIDE 108 MMOL/L (99-107); CREATININE 1.34 MG/DL (0.60-1.10); GLUCOSE 86 MG/DL (70-104); POTASSIUM 3.7 MMOL/L (3.5-5.1); SODIUM 145 MMOL/L (135-145); TOTAL CARBON DIOXIDE 26.1 MMOL/L (24-32); eGFR 50 ML/MIN
[2022-10-16 10:00] VITALS: BP 129/62
[2022-10-16] MEDS: dextrose 5%-normal saline 1,000 ML IV SCH (11:20)
--- NOTE | 2022-10-16 12:03 | NUR ---
ORTHOSTATIC VITALS BP supine 153/72 BP stand 163/64 BP ambulating 89/49
--- NOTE | 2022-10-16 16:48 | NUR ---
Patient very cooperative with care this shift, agreeable to physical therapy. Q2h repositioning by nursing staff. Scott/skin care performed. Pt is unhappy about not being able to eat or drink. Primary RN performed BSS x3, each time pt has loud coughing despite HOB being > 45 degrees. Pt was pretty emotional, with nursing help, patient left voicemail on home phone for son stating "i feel this is the end and i just want you to know i love you". Will continue to monitor patient and assist with all needs.
[2022-10-16 18:00] VITALS: BP 160/64
--- NOTE | 2022-10-16 18:35 | NUR ---
Problems reprioritized. Patient report given, questions answered & plan of care reviewed with rachell celeste .
--- NOTE | 2022-10-16 18:48 | NUR ---
Patient in room DEJON 360. I have received report from RAJ BARLOW and had the opportunity to ask questions and assume patient care. Addendum: 10/16/22 at 1848 by Julia Wright RN Amended: Links added.
[2022-10-16] MEDS: lisinopril 20mg tablet PO SCH (20:12)
[2022-10-16] MEDS: enoxaparin 30mg/0.3ml syringe SUBCUT SCH (20:18)
[2022-10-16 22:00] VITALS: BP 152/67
[2022-10-17 02:05] VITALS: BP 149/71
[2022-10-17] MEDS: dextrose 5%-normal saline 1,000 ML IV SCH (04:20)
[2022-10-17 06:00] VITALS: BP 165/71
--- NOTE | 2022-10-17 06:48 | NUR ---
Problems reprioritized. Patient report given, questions answered & plan of care reviewed with RAJ ALONZO. Addendum: 10/17/22 at 0648 by Julia Wright RN Amended: Links added.
[2022-10-17 07:06] LABS: BASOPHILS # (AUTO) 0.1 X10'3 (0-0.2); EOSINOPHILS # (AUTO) 0.2 X10'3 (0-0.9); EOSINOPHILS % (AUTO) 1.6 % (0-6); HEMATOCRIT 26.2 % (42.0-52.0); HEMOGLOBIN 8.9 g/dl (14.0-17.9); LYMPHOCYTES % (AUTO) 20.1 % (21-51); MEAN CORPUSCULAR HEMOGLOBIN 33.9 PG (27.0-31.0); MEAN CORPUSCULAR HGB CONC 34.1 g/dL (33.0-36.5); MEAN CORPUSCULAR VOLUME 99.5 FL (78-98); MEAN PLATELET VOLUME 9.3 FL (7.4-10.4); MONOCYTES # (AUTO) 0.8 X10'3 (0-0.9); MONOCYTES % (AUTO) 7.6 % (2-12); NEUTROPHILS % (AUTO) 69.7 % (42-75); PLATELET COUNT 319 X10'3 (140-440); RED BLOOD COUNT 2.64 X10'6 (4.70-6.10); RED CELL DISTRIBUTION WIDTH 12.6 % (11.5-14.5); WHITE BLOOD COUNT 10.1 X10'3 (4.5-11.0)
[2022-10-17] MEDS: JUVEN Smoothie Arginine/Glut./Ca2+Bmb (Juven 19.3pkt) 240ml cup PO SCH ×3 (07:30→17:30)
[2022-10-17] MEDS: K and/or MAG REPLACEMENT MC SCH ×2 (08:00→20:00)
[2022-10-17] MEDS: docusate sod 100mg capsule PO SCH ×2 (08:00→20:18)
[2022-10-17 08:17] LABS: ALBUMIN 2.9 G/DL (3.4-5.0); ANION GAP 10 (8-16); BLOOD UREA NITROGEN 38 MG/DL (7-18); BUN/CREATININE RATIO 30.6 (5.4-32.0); CALCIUM 8.5 MG/DL (8.5-10.1); CHLORIDE 110 MMOL/L (99-107); CREATININE 1.24 MG/DL (0.60-1.10); GLUCOSE 110 MG/DL (70-104); POTASSIUM 3.7 MMOL/L (3.5-5.1); SODIUM 147 MMOL/L (135-145); TOTAL CARBON DIOXIDE 27.5 MMOL/L (24-32); eGFR 55 ML/MIN
--- NOTE | 2022-10-17 09:57 | NUR ---
Reassessment: Pt has been made NPO per PIPE FITTER APPRENTICE recs 10/15, pt unsafe for PO. If pt continues to be unsafe for PO recommend initiation of nutrition support. LBM 10/14. Limited nutrition interventions at this time, will continue to monitor. Recs; 1. Regular diet when cleared per PIPE FITTER APPRENTICE 2. Jaquan Smoothies BIDBD once safe to swallow 3. Bowel care per rx 4. Weekly wts 5. Initiate nutrition support if pt remains unsafe to swallow Addendum: 10/17/22 at [address] Amended: Links added.
[2022-10-17 10:00] VITALS: BP 167/76
[2022-10-17] MEDS: HYDROchlorothiazide 25mg tablet PO SCH (10:24)
[2022-10-17] MEDS: levoTHYROXINE 25mcg tablet PO SCH (10:24)
[2022-10-17] MEDS: carvedilol 6.25mg tablet PO SCH ×2 (10:24→20:18)
[2022-10-17 18:00] VITALS: BP 146/69
--- NOTE | 2022-10-17 18:48 | NUR ---
Patient in room DEJON 360. I have received report from RAJ ALONZO and had the opportunity to ask questions and assume patient care. Addendum: 10/17/22 at 1848 by Julia Wright RN Amended: Links added.
[2022-10-17] MEDS: enoxaparin 30mg/0.3ml syringe SUBCUT SCH (20:17)
[2022-10-17] MEDS: acetaminophen 325mg tablet PO PRN (20:18)
[2022-10-17] MEDS: lisinopril 20mg tablet PO SCH (20:19)
--- NOTE | 2022-10-17 20:30 | NUR ---
pt has oreders ok to keep iv out.
[2022-10-17 22:00] VITALS: BP 97/53
--- NOTE | 2022-10-18 01:30 | NUR ---
pt exhausted resting and holland and hs care done by lead manufacturing engineering tech. earlier in evening pt had ripped off left hip dressing. site looks good and island dressing on clean and dry.
--- NOTE | 2022-10-18 03:00 | NUR ---
administrative support associate WHO HAD PT PRIOR TO SURGERY STATED PT HAD SAID HIS SON IS DEVELOPMENTALLY DISABLED AND THAT HE HAS TO DO THE MEDICATIONS FOR HIS SON HE ALSO HAS MEDICAL PROBLEMS WELL. PT HAS BEEN CONFUSED SINCE SURGERY AND UNABLE TO RELAY THIS. I HAD NOT SEEN THIS INFORMATION IN THE CHART AND DID NOT RECEIVE IT IN ANY REPORT. THE AIDE SAID SHE HAD CARED FOR HIM ON ADMIT AND PRIOR TO SURGERY. SHE DID NOT KNOW THE INFORMATION HAD NOT BEEN RELAYED.
[2022-10-18] MEDS: dextrose 5%-normal saline 1,000 ML IV SCH ×2 (03:15→23:15)
--- NOTE | 2022-10-18 05:53 | NUR ---
pt resting eyes closed without changes.
[2022-10-18 06:00] VITALS: BP 108/51
[2022-10-18 06:17] LABS: BASOPHILS # (AUTO) 0.1 X10'3 (0-0.2); BASOPHILS % (AUTO) 0.8 % (0-1); EOSINOPHILS # (AUTO) 0.1 X10'3 (0-0.9); EOSINOPHILS % (AUTO) 0.7 % (0-6); HEMATOCRIT 24.4 % (42.0-52.0); HEMOGLOBIN 8.3 g/dl (14.0-17.9); LYMPHOCYTES # (AUTO) 1.9 X10'3 (1.1-4.8); LYMPHOCYTES % (AUTO) 18.9 % (21-51); MEAN CORPUSCULAR HEMOGLOBIN 34.2 PG (27.0-31.0); MEAN CORPUSCULAR HGB CONC 34.2 g/dL (33.0-36.5); MEAN PLATELET VOLUME 9.3 FL (7.4-10.4); MONOCYTES # (AUTO) 0.6 X10'3 (0-0.9); NEUTROPHILS # (AUTO) 7.4 X10'3 (1.8-7.7); NEUTROPHILS % (AUTO) 73.6 % (42-75); PLATELET COUNT 317 X10'3 (140-440); RED BLOOD COUNT 2.44 X10'6 (4.70-6.10); RED CELL DISTRIBUTION WIDTH 12.7 % (11.5-14.5)
[2022-10-18 06:42] LABS: ALBUMIN 2.8 G/DL (3.4-5.0); ANION GAP 14 (8-16); BLOOD UREA NITROGEN 39 MG/DL (7-18); BUN/CREATININE RATIO 28.7 (5.4-32.0); CALCIUM 8.5 MG/DL (8.5-10.1); CHLORIDE 107 MMOL/L (99-107); CREATININE 1.36 MG/DL (0.60-1.10); GLUCOSE 100 MG/DL (70-104); POTASSIUM 3.5 MMOL/L (3.5-5.1); SODIUM 145 MMOL/L (135-145); TOTAL CARBON DIOXIDE 23.7 MMOL/L (24-32); eGFR 49 ML/MIN
--- NOTE | 2022-10-18 06:48 | NUR ---
Problems reprioritized. Patient report given, questions answered & plan of care reviewed with RAJ ALONZO. Addendum: 10/18/22 at 0648 by Julia Wright RN Amended: Links added.
[2022-10-18] MEDS: JUVEN Smoothie Arginine/Glut./Ca2+Bmb (Juven 19.3pkt) 240ml cup PO SCH ×2 (07:30→19:35)
[2022-10-18] MEDS: K and/or MAG REPLACEMENT MC SCH ×2 (08:00→19:36)
[2022-10-18] MEDS: levoTHYROXINE 25mcg tablet PO SCH (09:32)
[2022-10-18] MEDS: docusate sod 100mg capsule PO SCH ×2 (09:32→20:07)
[2022-10-18] MEDS: HYDROchlorothiazide 25mg tablet PO SCH (09:32)
[2022-10-18] MEDS: carvedilol 6.25mg tablet PO SCH ×2 (09:32→20:06)
[2022-10-18 10:00] VITALS: BP 114/57
--- NOTE | 2022-10-18 13:03 | NUR ---
Spoke with patient, he says his son is at home and does need help. Is ok at home alone for only a couple of days. Suggested to CM/SS a welfare check may be needed.
--- NOTE | 2022-10-18 15:20 | NUR ---
PRESSURE ULCER EDUCATION: DEFINITION: A pressure ulcer is an area of skin that breaks down when you stay in one position too long. The constant pressure against the skin reduces the blood flow to that area and the affected tissue dies. CAUSES: "Being bedridden or in a wheelchair "Fragile skin "Having a chronic condition, such as diabetes or vascular disease "Inability to move certain parts of your body without assistance "Older age "Incontinence of urine or stool SYMPTOMS: "A reddened area that DOES NOT turn white when pressed on - this can be the beginning of a pressure ulcer "A blister, deep sore or a crater - these can be advanced pressure ulcers FIRST AID: "Relieve the pressure on this area "Keep the area clean and dry "Call your primary doctor if you see any of the above symptoms "DO NOT massage the area "DO NOT use a donut shaped or ring shaped pillow- these actually interfere with the blood flow and cause complications PREVENTION: "Check for pressure ulcers everyday "Change position at least every two hours to relieve pressure "Use items that help relieve pressure- pillows, sheepskin, foam padding, and powders. "Keep skin clean and dry "Eat healthy well balanced meals "Exercise daily IF YOU SEE ANY OF THESE SYMPTOMS WHILE IN THE HOSPITAL - TELL YOUR NURSE IMMEDIATELY. IF YOU SEE ANY OF THESE SYMPTOMS WHILE AT HOME OR HAVE ANY QUESTIONS OR CONCERNS ABOUT PRESSURE ULCERS - CALL YOUR PRIMARY DOCTOR IMMEDIATELY. Addendum: 10/18/22 at 1520 by Brooklyn Damian RN Amended: Links added.
[2022-10-18 18:00] VITALS: BP 109/59
[2022-10-18] MEDS: lisinopril 20mg tablet PO SCH (20:06)
[2022-10-18] MEDS: enoxaparin 30mg/0.3ml syringe SUBCUT SCH (20:07)
[2022-10-18 22:00] VITALS: BP 86/47
[2022-10-19 06:00] VITALS: BP 136/73
[2022-10-19] MEDS: JUVEN Smoothie Arginine/Glut./Ca2+Bmb (Juven 19.3pkt) 240ml cup PO SCH ×2 (07:30→18:30)
[2022-10-19] MEDS: docusate sod 100mg capsule PO SCH ×2 (09:00→20:00)
--- NOTE | 2022-10-19 09:12 | NUR ---
Reassessment; Pt now back to Puree/NTL per BATCH PLANT OPERATOR, though continues to not have much PO intake, mostly 0%. Documented as A&O x 1 and confused. Pt at high risk for developing malnutrition. Recommend initiation of nutrition support at this time if within POC. LBM 10/17. Will continue to monitor. Recs; 1. Regular diet when cleared per BATCH PLANT OPERATOR 2. Jaquan Smoothies BIDBD once safe to swallow 3. Bowel care per rx 4. Weekly wts 5. Initiate nutrition support if within POC Addendum: 10/19/22 at [address] Amended: Links added.
[2022-10-19 10:00] VITALS: BP 147/61
[2022-10-19] MEDS: HYDROchlorothiazide 25mg tablet PO SCH (10:00)
[2022-10-19] MEDS: carvedilol 6.25mg tablet PO SCH ×2 (10:00→20:00)
[2022-10-19] MEDS: levoTHYROXINE 25mcg tablet PO SCH (12:21)
[2022-10-19 18:00] VITALS: BP 108/47
--- NOTE | 2022-10-19 18:28 | NUR ---
Report to Winnie RN Addendum: 10/19/22 at 1840 by Layne Buenrostro RN Report to Shayna ANTHONY
--- NOTE | 2022-10-19 18:30 | NUR ---
Patient in room DEJON 356. I have received report from Layne ANTHONY and had the opportunity to ask questions and assume patient care.
[2022-10-19] MEDS: K and/or MAG REPLACEMENT MC SCH ×2 (20:00→20:29)
[2022-10-19] MEDS: lisinopril 20mg tablet PO SCH (20:37)
[2022-10-19] MEDS: enoxaparin 30mg/0.3ml syringe SUBCUT SCH (20:40)
[2022-10-19 22:00] VITALS: BP 100/49
[2022-10-20] VITALS (9 sets, daily range): BP systolic 57–111; BP diastolic 30–58
--- NOTE | 2022-10-20 06:10 | NUR ---
Patient in room DEJON 356. I have received report from Shayna ANTHONY and had the opportunity to ask questions and assume patient care.
--- NOTE | 2022-10-20 06:40 | NUR ---
Problems reprioritized. Patient report given, questions answered & plan of care reviewed with [].
[2022-10-20] MEDS: JUVEN Smoothie Arginine/Glut./Ca2+Bmb (Juven 19.3pkt) 240ml cup PO SCH ×2 (07:30→17:30)
[2022-10-20] MEDS: K and/or MAG REPLACEMENT MC SCH ×2 (08:00→20:00)
[2022-10-20] MEDS: docusate sod 100mg capsule PO SCH ×2 (08:00→20:43)
[2022-10-20] MEDS: levoTHYROXINE 25mcg tablet PO SCH (08:32)
[2022-10-20] MEDS: carvedilol 6.25mg tablet PO SCH (08:32)
[2022-10-20] MEDS: HYDROchlorothiazide 25mg tablet PO SCH (08:32)
--- NOTE | 2022-10-20 10:23 | NUR ---
PAGER ID: [phone] MESSAGE: [id number]- Lex Perry-Patient BP is 70/40. Am BP meds were given and BP at the time was 121/63. Please advise? WERO Ennis LVN 9297
--- NOTE | 2022-10-20 10:52 | NUR ---
PAGER ID: [phone] MESSAGE: MelissaA- Lex Perry-2nd page, patient BP manually is 84/42. Giving 250 bolus, do you want to anything else? last labs was 10/18, do you want more labs? Please advise WERO Ennis LVN 9580
--- NOTE | 2022-10-20 16:30 | NUR ---
Low BP continued when pt up with PT. DINORA hose applied to BLE for orthostatic Hypotension. BP 87/45 P 77 prior to TEDs applied and 80/41 P 65 1 hour afterward. Pt drowsy but easily oriented. Dr. Murray notified and orders received.
[2022-10-20] MEDS ORDERED: normal saline 500ml IV soln 500 ML IV ONE (16:35)
--- NOTE | 2022-10-20 18:00 | NUR ---
BP 100/48 after bolus given per orders. Pt still drowsy but easily aroused.
--- NOTE | 2022-10-20 18:25 | NUR ---
Patient in room DEJON 356. I have received report from Loli LEON and had the opportunity to ask questions and assume patient care.
--- NOTE | 2022-10-20 18:47 | NUR ---
Problems reprioritized. Patient report given, questions answered & plan of care reviewed with Shayna ANTHONY.
--- NOTE | 2022-10-20 18:54 | NUR ---
PHP WORDPRESS DEVELOPER documentation: I have reviewed and agree with all interventions, assessments performed and documented by Loli Kohler LVN.
[2022-10-20] MEDS: enoxaparin 30mg/0.3ml syringe SUBCUT SCH (20:44)
[2022-10-20] MEDS: acetaminophen 325mg tablet PO PRN (20:47)
[2022-10-21 00:58] VITALS: BP 101/49
[2022-10-21 06:00] VITALS: BP 120/59
--- NOTE | 2022-10-21 06:05 | NUR ---
Problems reprioritized. Patient report given, questions answered & plan of care reviewed with Loli ANTHONY.
--- NOTE | 2022-10-21 06:10 | NUR ---
Patient in room DEJON 356. I have received report from Shayna ANTHONY and had the opportunity to ask questions and assume patient care.
[2022-10-21] MEDS: levoTHYROXINE 25mcg tablet PO SCH (07:29)
[2022-10-21] MEDS: JUVEN Smoothie Arginine/Glut./Ca2+Bmb (Juven 19.3pkt) 240ml cup PO SCH ×3 (07:30→16:38)
[2022-10-21] MEDS: docusate sod 100mg capsule PO SCH ×2 (08:00→19:49)
[2022-10-21] MEDS: K and/or MAG REPLACEMENT MC SCH ×2 (08:00→19:48)
[2022-10-21 10:00] VITALS: BP 112/56
[2022-10-21] MEDS: acetaminophen 325mg tablet PO PRN (14:02)
[2022-10-21 18:00] VITALS: BP 102/56
--- NOTE | 2022-10-21 18:00 | NUR ---
I have reviewed and agree with all interventions, assessments performed, and documentation by Loli Jay LVN.
[2022-10-21] MEDS: enoxaparin 30mg/0.3ml syringe SUBCUT SCH (19:38)
[2022-10-21 22:00] VITALS: BP 92/46
[2022-10-22 02:00] VITALS: BP 102/55
--- NOTE | 2022-10-22 03:07 | NUR ---
REVIEWED PLEATING MACHINE OPERATOR ASSESSMENTS AND IN AGREEMENT.
[2022-10-22] MEDS: acetaminophen 325mg tablet PO PRN (03:41)
[2022-10-22 06:00] VITALS: BP 95/42
--- NOTE | 2022-10-22 06:35 | NUR ---
Problems reprioritized. Patient report given, questions answered & plan of care reviewed with Adina LEON.
--- NOTE | 2022-10-22 06:43 | NUR ---
Patient in room DEJON 356. I have received report from Loli LEON and had the opportunity to ask questions and assume patient care.
[2022-10-22] MEDS: K and/or MAG REPLACEMENT MC SCH ×2 (08:00→19:59)
[2022-10-22] MEDS: levoTHYROXINE 25mcg tablet PO SCH (08:26)
[2022-10-22] MEDS: docusate sod 100mg capsule PO SCH ×2 (08:26→20:00)
--- NOTE | 2022-10-22 09:34 | NUR ---
Reassessment: PO intake has improved, documented with average 71% PO intake x 6 most recent meals. Pt now receiving a Jaquan smoothie BID of which pt documented with 75-100% PO intake of. Pt meeting estimated nutrient needs at this time. [facility] 10/20, receiving routine bowel care. No further nutrition intervention implemented at this time. Will continue to follow. Recommendations: 1. Regular diet when cleared per STORM WINDOW INSTALLER; encourage PO intake and assist with meals 2. Jaquan smoothies BIDBD 3. Routine bowel care 4. Weekly scaled weights Addendum: 10/22/22 at [address] Amended: Links added.
[2022-10-22 10:00] VITALS: BP 88/36
--- NOTE | 2022-10-22 15:57 | NUR ---
NETWORK OPERATIONS MANAGER documentation: I have reviewed and agree with all interventions, assessments performed and documented by Adina Varma LVN.
[2022-10-22] MEDS: JUVEN Smoothie Arginine/Glut./Ca2+Bmb (Juven 19.3pkt) 240ml cup PO SCH (17:35)
[2022-10-22 18:00] VITALS: BP 120/55
--- NOTE | 2022-10-22 18:26 | NUR ---
Problems reprioritized. Patient report given, questions answered & plan of care reviewed with Maribel ANTHONY.
--- NOTE | 2022-10-22 18:27 | NUR ---
Patient in room [facility]JON 356. I have received report from CAROLYN Holden and had the opportunity to ask questions and assume patient care.
[2022-10-22] MEDS: enoxaparin 30mg/0.3ml syringe SUBCUT SCH (20:05)
[2022-10-22 22:00] VITALS: BP 103/53
[2022-10-23 06:00] VITALS: BP 105/51
--- NOTE | 2022-10-23 06:41 | NUR ---
Problems reprioritized. Patient report given, questions answered & plan of care reviewed with RAJ Castellon.
--- NOTE | 2022-10-23 06:54 | NUR ---
Patient in room [facility]JON 356. I have received report from Maribel ANTHONY and had the opportunity to ask questions and assume patient care.
[2022-10-23] MEDS: JUVEN Smoothie Arginine/Glut./Ca2+Bmb (Juven 19.3pkt) 240ml cup PO SCH ×2 (07:30→17:30)
[2022-10-23] MEDS: K and/or MAG REPLACEMENT MC SCH ×2 (08:00→19:51)
[2022-10-23] MEDS: docusate sod 100mg capsule PO SCH ×2 (09:00→19:53)
[2022-10-23] MEDS: levoTHYROXINE 25mcg tablet PO SCH (09:00)
[2022-10-23 10:00] VITALS: BP 103/51
[2022-10-23 18:00] VITALS: BP 114/54
--- NOTE | 2022-10-23 18:30 | NUR ---
Patient in room DEJON 348. I have received report from RAJ Castellon and had the opportunity to ask questions and assume patient care.
--- NOTE | 2022-10-23 19:12 | NUR ---
Problems reprioritized. Patient report given, questions answered & plan of care reviewed with Maribel ANTHONY. *Interventions/outcomes and some pt care was not provided to my pt becuase of the lack of time and the level of care needed. I had 2 covid pts and a flu pt all isolation and I am Papr ONLY. takes a lot of time to get dress and sanitized after.Trying to avoid OT.
[2022-10-23] MEDS: enoxaparin 30mg/0.3ml syringe SUBCUT SCH (19:53)
[2022-10-23] MEDS: acetaminophen 325mg tablet PO PRN (21:33)
[2022-10-23 22:00] VITALS: BP 128/66
[2022-10-24 06:00] VITALS: BP 122/60
--- NOTE | 2022-10-24 06:44 | NUR ---
Problems reprioritized. Patient report given, questions answered & plan of care reviewed with RAJ Tillman.
[2022-10-24] MEDS: K and/or MAG REPLACEMENT MC SCH ×2 (08:00→20:00)
[2022-10-24] MEDS: levoTHYROXINE 25mcg tablet PO SCH (08:50)
[2022-10-24] MEDS: docusate sod 100mg capsule PO SCH ×2 (08:50→20:22)
[2022-10-24] MEDS: JUVEN Smoothie Arginine/Glut./Ca2+Bmb (Juven 19.3pkt) 240ml cup PO SCH ×2 (08:50→17:30)
[2022-10-24 10:00] VITALS: BP 114/64
--- NOTE | 2022-10-24 17:00 | NUR ---
per patient request call made to Eusebia Hayden requesting a visit from his son. Pt attempting to call son at home but no answer.
--- NOTE | 2022-10-24 18:34 | NUR ---
report to Gerry ANTHONY
[2022-10-24 19:10] VITALS: BP 113/56
[2022-10-24] MEDS: enoxaparin 30mg/0.3ml syringe SUBCUT SCH (20:22)
[2022-10-24 22:00] VITALS: BP 107/55
[2022-10-25 06:00] VITALS: BP 127/61
--- NOTE | 2022-10-25 06:38 | NUR ---
Problems reprioritized. Patient report given, questions answered & plan of care reviewed with CLINTON. Addendum: 10/25/22 at 0638 by Nabeel Cruz RN Amended: Links added.
[2022-10-25] MEDS: JUVEN Smoothie Arginine/Glut./Ca2+Bmb (Juven 19.3pkt) 240ml cup PO SCH ×2 (08:00→17:30)
[2022-10-25] MEDS: K and/or MAG REPLACEMENT MC SCH ×2 (08:00→20:00)
[2022-10-25] MEDS: docusate sod 100mg capsule PO SCH ×2 (08:23→20:00)
[2022-10-25] MEDS: levoTHYROXINE 25mcg tablet PO SCH (08:23)
[2022-10-25 10:00] VITALS: BP 109/53
--- NOTE | 2022-10-25 14:00 | NUR ---
Patient shaved most of face, some assistance with shaving neck as hair was quite long & pulled.
[2022-10-25] MEDS: acetaminophen 325mg tablet PO PRN (17:05)
--- NOTE | 2022-10-25 18:21 | NUR ---
Report to Gerry ANTHONY
[2022-10-25 18:50] VITALS: BP 156/75
[2022-10-25] MEDS: enoxaparin 30mg/0.3ml syringe SUBCUT SCH (20:13)
[2022-10-25 22:00] VITALS: BP 124/63
[2022-10-26 06:00] VITALS: BP 135/63
--- NOTE | 2022-10-26 06:33 | NUR ---
Problems reprioritized. Patient report given, questions answered & plan of care reviewed with SALLY. Addendum: 10/26/22 at 0633 by Nabeel Cruz RN Amended: Links added.
[2022-10-26] MEDS: K and/or MAG REPLACEMENT MC SCH ×2 (07:20→20:00)
[2022-10-26] MEDS: docusate sod 100mg capsule PO SCH ×2 (07:20→21:25)
[2022-10-26] MEDS: JUVEN Smoothie Arginine/Glut./Ca2+Bmb (Juven 19.3pkt) 240ml cup PO SCH ×2 (07:20→17:55)
[2022-10-26] MEDS: levoTHYROXINE 25mcg tablet PO SCH (07:20)
[2022-10-26 10:00] VITALS: BP 96/46
[2022-10-26 18:30] VITALS: BP 131/78
--- NOTE | 2022-10-26 18:56 | NUR ---
Report given to January RN, pt resting comfortably in bed, eating dinner. No current complaints. Bed changed prior to shift change.
[2022-10-26] MEDS: enoxaparin 30mg/0.3ml syringe SUBCUT SCH (21:26)
[2022-10-26 22:00] VITALS: BP 105/55
[2022-10-27 06:55] VITALS: BP 108/58
--- NOTE | 2022-10-27 06:58 | NUR ---
Patient in room DEJON 348. I have received report from ivana rn and had the opportunity to ask questions and assume patient care.
[2022-10-27] MEDS: JUVEN Smoothie Arginine/Glut./Ca2+Bmb (Juven 19.3pkt) 240ml cup PO SCH ×2 (07:51→17:31)
[2022-10-27] MEDS: K and/or MAG REPLACEMENT MC SCH ×2 (07:52→19:47)
[2022-10-27] MEDS: docusate sod 100mg capsule PO SCH ×2 (07:54→19:49)
[2022-10-27] MEDS: levoTHYROXINE 25mcg tablet PO SCH (07:54)
[2022-10-27 10:44] VITALS: BP 120/60
--- NOTE | 2022-10-27 13:26 | NUR ---
Reassessment: Pt with mostly 50-75% PO intake of meals and mostly 100% PO intake of Jaquan smoothie BID meeting estimated nutrient needs. [facility] 10/26. No further nutrition intervention implemented at this time. Will continue to follow. Recommendations: 1. Regular diet when cleared per BOX CAR WASHER; encourage PO intake and assist with meals 2. Jaquan smoothies BIDBD 3. Routine bowel care 4. Weekly scaled weights Addendum: 10/27/22 at [address] Amended: Links added.
[2022-10-27 18:00] VITALS: BP 133/58
--- NOTE | 2022-10-27 18:31 | NUR ---
Problems reprioritized. Patient report given, questions answered & plan of care reviewed with VAISHNAVI ANTHONY.
--- NOTE | 2022-10-27 19:28 | NUR ---
Patient in room DEJON 348. I have received report from Kailee and had the opportunity to ask questions and assume patient care.
[2022-10-27] MEDS: enoxaparin 30mg/0.3ml syringe SUBCUT SCH (19:49)
[2022-10-27 22:00] VITALS: BP 122/54
--- NOTE | 2022-10-28 06:14 | NUR ---
Problems reprioritized. Patient report given, questions answered & plan of care reviewed with Tabatha.
[2022-10-28 06:31] VITALS: BP 145/74
--- NOTE | 2022-10-28 06:34 | NUR ---
Patient in room DEJON 348. I have received report from Erin and had the opportunity to ask questions and assume patient care.
[2022-10-28] MEDS: K and/or MAG REPLACEMENT MC SCH ×2 (06:36→20:00)
[2022-10-28] MEDS: docusate sod 100mg capsule PO SCH ×2 (07:31→20:00)
[2022-10-28] MEDS: JUVEN Smoothie Arginine/Glut./Ca2+Bmb (Juven 19.3pkt) 240ml cup PO SCH ×2 (08:23→18:04)
[2022-10-28] MEDS: levoTHYROXINE 25mcg tablet PO SCH (08:23)
[2022-10-28 10:41] VITALS: BP 114/55
[2022-10-28 18:00] VITALS: BP 143/68
--- NOTE | 2022-10-28 18:33 | NUR ---
Problems reprioritized. Patient report given, questions answered & plan of care reviewed with Kalani.
[2022-10-28] MEDS: enoxaparin 30mg/0.3ml syringe SUBCUT SCH (21:08)
[2022-10-28 22:00] VITALS: BP 124/65
--- NOTE | 2022-10-29 06:40 | NUR ---
Patient in room DEJON 348. I have received report from [employer]BD[employer] and had the opportunity to ask questions and assume patient care.
--- NOTE | 2022-10-29 06:41 | NUR ---
Problems reprioritized. Patient report given, questions answered & plan of care reviewed with Tabatha ANTHONY. Addendum: 10/29/22 at 0641 by Kalani Souza RN Amended: Links added.
[2022-10-29] MEDS: K and/or MAG REPLACEMENT MC SCH ×2 (06:46→19:30)
[2022-10-29 07:09] VITALS: BP 125/59
[2022-10-29] MEDS: docusate sod 100mg capsule PO SCH ×2 (08:00→19:30)
[2022-10-29] MEDS: JUVEN Smoothie Arginine/Glut./Ca2+Bmb (Juven 19.3pkt) 240ml cup PO SCH ×2 (08:30→17:30)
[2022-10-29] MEDS: levoTHYROXINE 25mcg tablet PO SCH (08:42)
[2022-10-29 10:40] VITALS: BP 104/55
[2022-10-29 18:00] VITALS: BP 111/54
[2022-10-29] MEDS: enoxaparin 30mg/0.3ml syringe SUBCUT SCH (19:31)
[2022-10-29] MEDS: acetaminophen 325mg tablet PO PRN ×2 (19:35→22:24)
[2022-10-29 22:00] VITALS: BP 113/61
--- NOTE | 2022-10-30 06:30 | NUR ---
Problems reprioritized. Patient report given, questions answered & plan of care reviewed with Brandi ANTHONY. Addendum: 10/30/22 at 0631 by Kalani Souza RN Amended: Links added.
[2022-10-30 07:00] VITALS: BP 120/61
--- NOTE | 2022-10-30 07:04 | NUR ---
Patient in room [facility]. I have received report from Kalani ANTHONY and had the opportunity to ask questions and assume patient care.
[2022-10-30] MEDS: docusate sod 100mg capsule PO SCH ×2 (07:53→21:29)
[2022-10-30] MEDS: levoTHYROXINE 25mcg tablet PO SCH (07:53)
[2022-10-30] MEDS: JUVEN Smoothie Arginine/Glut./Ca2+Bmb (Juven 19.3pkt) 240ml cup PO SCH ×2 (07:53→17:53)
[2022-10-30] MEDS: K and/or MAG REPLACEMENT MC SCH ×2 (08:00→20:00)
[2022-10-30 11:19] VITALS: BP 128/77
[2022-10-30 18:00] VITALS: BP 129/64
--- NOTE | 2022-10-30 18:27 | NUR ---
Problems reprioritized. Patient report given, questions answered & plan of care reviewed with Pat RN.
[2022-10-30] MEDS: enoxaparin 30mg/0.3ml syringe SUBCUT SCH (21:31)
[2022-10-30] MEDS: acetaminophen 325mg tablet PO PRN (21:34)
[2022-10-30 22:00] VITALS: BP 121/61
[2022-10-31] MEDS: acetaminophen 325mg tablet PO PRN (05:52)
--- NOTE | 2022-10-31 06:00 | NUR ---
Patient in room [facility] 348. I have received report from Pat RN and had the opportunity to ask questions and assume patient care.
[2022-10-31 06:16] VITALS: BP 133/82
[2022-10-31] MEDS: K and/or MAG REPLACEMENT MC SCH ×2 (08:00→20:00)
[2022-10-31] MEDS: docusate sod 100mg capsule PO SCH ×2 (08:08→20:24)
[2022-10-31] MEDS: JUVEN Smoothie Arginine/Glut./Ca2+Bmb (Juven 19.3pkt) 240ml cup PO SCH ×2 (08:09→17:30)
[2022-10-31] MEDS: levoTHYROXINE 25mcg tablet PO SCH (08:09)
[2022-10-31 10:34] VITALS: BP 96/51
--- NOTE | 2022-10-31 14:58 | NUR ---
Patient is stating that he is seeing 5 ninja's in his room trying to kill him. I assured that he is safe and that I will talk with the MD. Spoke with MD and he ordered labs/UA reflux culture.
[2022-10-31 15:08] LABS: BASOPHILS # (AUTO) 0.1 X10'3 (0-0.2); BASOPHILS % (AUTO) 1.1 % (0-1); EOSINOPHILS # (AUTO) 0.1 X10'3 (0-0.9); EOSINOPHILS % (AUTO) 1.3 % (0-6); HEMATOCRIT 27.2 % (42.0-52.0); LYMPHOCYTES # (AUTO) 1.6 X10'3 (1.1-4.8); LYMPHOCYTES % (AUTO) 20.1 % (21-51); MEAN CORPUSCULAR HGB CONC 33.2 g/dL (33.0-36.5); MEAN CORPUSCULAR VOLUME 102.4 FL (78-98); MONOCYTES # (AUTO) 0.6 X10'3 (0-0.9); MONOCYTES % (AUTO) 8.2 % (2-12); NEUTROPHILS # (AUTO) 5.4 X10'3 (1.8-7.7); NEUTROPHILS % (AUTO) 69.3 % (42-75); PLATELET COUNT 223 X10'3 (140-440); RED BLOOD COUNT 2.66 X10'6 (4.70-6.10); RED CELL DISTRIBUTION WIDTH 13.8 % (11.5-14.5); WHITE BLOOD COUNT 7.9 X10'3 (4.5-11.0)
[2022-10-31 15:29] LABS: ALANINE AMINOTRANSFERASE 21 U/L (12-78); ALBUMIN 2.8 G/DL (3.4-5.0); ALBUMIN/GLOBULIN RATIO 0.8 (1.1-1.5); ALKALINE PHOSPHATASE 120 IU/L (46-116); ANION GAP 4 (8-16); ASPARTATE AMINO TRANSFERASE 27 U/L (10-37); BILIRUBIN,TOTAL 0.3 MG/DL (0.1-1.0); BLOOD UREA NITROGEN 48 MG/DL (7-18); BUN/CREATININE RATIO 35.8 (5.4-32.0); CALCIUM 8.4 MG/DL (8.5-10.1); CHLORIDE 107 MMOL/L (99-107); CREATININE 1.34 MG/DL (0.60-1.10); GLUCOSE 137 MG/DL (70-104); MAGNESIUM 2.4 MG/DL (1.5-2.4); PHOSPHORUS 3.3 MG/DL (2.3-4.5); POTASSIUM 4.5 MMOL/L (3.5-5.1); SODIUM 140 MMOL/L (135-145); TOTAL CARBON DIOXIDE 28.7 MMOL/L (24-32); TOTAL PROTEIN 6.4 G/DL (6.4-8.2); eGFR 50 ML/MIN
[2022-10-31 17:47] LABS: CLARITY,URINE CLEAR (Clear); COLOR,URINE YELLOW (Yellow); GLUCOSE, URINE NEGATIVE (Neg); KETONES,URINE NEGATIVE (Neg); LEUKOCYTE ESTERASE ,URINE NEGATIVE (Neg); NITRITES, URINE NEGATIVE (Neg); OCCULT BLOOD,URINE NEGATIVE (Neg); PROTEIN,URINE NEGATIVE (Neg); UROBILINOGEN,URINE 0.2 E.U/dL (0.2-1.0)
[2022-10-31 17:53] LABS: UA COLLECTION TYPE NON-SPECIFIED
--- NOTE | 2022-10-31 18:18 | NUR ---
Problems reprioritized. Patient report given, questions answered & plan of care reviewed with Chanel ANTHONY.
[2022-10-31 19:30] VITALS: BP 143/71
[2022-10-31] MEDS: enoxaparin 30mg/0.3ml syringe SUBCUT SCH (20:25)
[2022-10-31 22:00] VITALS: BP 111/55
[2022-11-01 06:00] VITALS: BP 120/63
--- NOTE | 2022-11-01 06:10 | NUR ---
Patient in room [facility] 348. I have received report from Chanel ANTHONY and had the opportunity to ask questions and assume patient care.
--- NOTE | 2022-11-01 06:12 | NUR ---
Problems reprioritized. Patient report given, questions answered & plan of care reviewed with RAJ WILEY.
[2022-11-01] MEDS: K and/or MAG REPLACEMENT MC SCH ×2 (07:08→19:53)
[2022-11-01] MEDS: JUVEN Smoothie Arginine/Glut./Ca2+Bmb (Juven 19.3pkt) 240ml cup PO SCH ×2 (07:30→17:30)
[2022-11-01] MEDS: docusate sod 100mg capsule PO SCH ×2 (07:40→19:55)
[2022-11-01] MEDS: levoTHYROXINE 25mcg tablet PO SCH (07:40)
[2022-11-01 10:00] VITALS: BP 103/45
--- NOTE | 2022-11-01 10:00 | NUR ---
patient stated tonight that he doesn't understand why he is still here in the hospital. I advised him that he is here because he fell and broke his hip and had surgery. Patient stated that he knows that but thought that he would have already been sent home. He just wants to go home and get to his son Jeff. I advised him that MD Laws (POA) and CM is working on a plan for him. Patient was very thankful
--- NOTE | 2022-11-01 13:13 | NUR ---
Patient is asking about his son Jeff and would like a visit. I called Eusebia patient LILIYA and asked her if she can bring Jeff for a visit. Eusebia states that today is her vacation day and she isn't able to bring him for a visit. Jeff is also developmentally delay and mental health would need to be the one who transport him places. Eusebia also states that Jeff hasn't been feeling well for the last few days and case management would be at his house tomorrow. Eusebia will speak with case management tomorrow when she go to check on Jeff to see if they can arrange a visit for patient and Jeff.
[2022-11-01 18:00] VITALS: BP 123/52
--- NOTE | 2022-11-01 18:00 | NUR ---
I have reviewed and agree with all interventions, assessments performed, and documentation by Loli Jay LVN.
[2022-11-01] MEDS: enoxaparin 30mg/0.3ml syringe SUBCUT SCH (19:58)
--- NOTE | 2022-11-01 20:01 | NUR ---
Agree with the collection of data/physical assessment by Mel Jay LVN.
[2022-11-01] MEDS: acetaminophen 325mg tablet PO PRN (20:49)
[2022-11-02 06:00] VITALS: BP 128/68
--- NOTE | 2022-11-02 06:00 | NUR ---
Patient in room [facility] 348. I have received report from Blanca LEON and had the opportunity to ask questions and assume patient care.
--- NOTE | 2022-11-02 06:22 | NUR ---
Problems reprioritized. Patient report given, questions answered & plan of care reviewed with Adina LEON.
[2022-11-02] MEDS: K and/or MAG REPLACEMENT MC SCH ×2 (07:13→19:30)
[2022-11-02] MEDS: docusate sod 100mg capsule PO SCH ×2 (07:14→19:59)
[2022-11-02] MEDS: JUVEN Smoothie Arginine/Glut./Ca2+Bmb (Juven 19.3pkt) 240ml cup PO SCH ×2 (07:32→18:12)
[2022-11-02] MEDS: levoTHYROXINE 25mcg tablet PO SCH (07:34)
[2022-11-02] MEDS ORDERED: tuberculin, purif. prot. deriv. 5 units/0.1ml ID ONE (10:15)
[2022-11-02 13:08] VITALS: BP 114/72
--- NOTE | 2022-11-02 13:38 | NUR ---
Reassessment: PO intake has improved with mostly 75-100% of meals and pt continues with mostly 100% PO intake of Jaquan smoothie BID meeting estimated nutrient needs. LBM 11/02. No further nutrition intervention implemented at this time. Will continue to follow. Recommendations: 1. Regular diet when cleared per [employer]; encourage PO intake and assist with meals 2. Jaquan smoothies BIDBD 3. Routine bowel care 4. Weekly scaled weights Addendum: 11/02/22 at [address] Amended: Links added.
[2022-11-02 18:00] VITALS: BP 143/69
--- NOTE | 2022-11-02 18:00 | NUR ---
I have reviewed and agree with all interventions, assessments performed, and documentation by Adina Penny LVN.
--- NOTE | 2022-11-02 18:16 | NUR ---
Problems reprioritized. Patient report given, questions answered & plan of care reviewed with Shayna ANTHONY.
--- NOTE | 2022-11-02 18:30 | NUR ---
Patient in room [facility] 348. I have received report from Adina LEON and had the opportunity to ask questions and assume patient care.
[2022-11-02] MEDS: enoxaparin 30mg/0.3ml syringe SUBCUT SCH (20:00)
[2022-11-02 22:00] VITALS: BP 136/68
[2022-11-03 06:00] VITALS: BP 111/59
--- NOTE | 2022-11-03 06:41 | NUR ---
Problems reprioritized. Patient report given, questions answered & plan of care reviewed with Adina ANTHONY.
[2022-11-03] MEDS: JUVEN Smoothie Arginine/Glut./Ca2+Bmb (Juven 19.3pkt) 240ml cup PO SCH ×2 (07:30→17:51)
[2022-11-03] MEDS: levoTHYROXINE 25mcg tablet PO SCH (07:38)
[2022-11-03] MEDS: K and/or MAG REPLACEMENT MC SCH ×2 (07:38→19:34)
[2022-11-03] MEDS: docusate sod 100mg capsule PO SCH ×2 (07:38→19:40)
[2022-11-03 10:00] VITALS: BP 118/56
[2022-11-03 18:00] VITALS: BP 143/74
--- NOTE | 2022-11-03 18:29 | NUR ---
Patient in room [facility] 348. I have received report from Adina LEON and had the opportunity to ask questions and assume patient care.
[2022-11-03] MEDS: acetaminophen 325mg tablet PO PRN (19:39)
[2022-11-03] MEDS: enoxaparin 30mg/0.3ml syringe SUBCUT SCH (19:41)
[2022-11-03 22:00] VITALS: BP 126/58
[2022-11-04] MEDS: acetaminophen 325mg tablet PO PRN ×2 (04:53→20:31)
[2022-11-04 06:00] VITALS: BP 111/60
--- NOTE | 2022-11-04 06:30 | NUR ---
Problems reprioritized. Patient report given, questions answered & plan of care reviewed with carolina ANTHONY.
--- NOTE | 2022-11-04 06:55 | NUR ---
Patient in room [facility] 348. I have received report from Shayna and had the opportunity to ask questions and assume patient care.
[2022-11-04] MEDS: K and/or MAG REPLACEMENT MC SCH ×2 (08:00→20:00)
[2022-11-04] MEDS: JUVEN Smoothie Arginine/Glut./Ca2+Bmb (Juven 19.3pkt) 240ml cup PO SCH ×2 (08:27→18:20)
[2022-11-04] MEDS: levoTHYROXINE 25mcg tablet PO SCH (08:27)
[2022-11-04] MEDS: docusate sod 100mg capsule PO SCH ×2 (08:27→20:08)
[2022-11-04 10:00] VITALS: BP 97/51
--- NOTE | 2022-11-04 14:42 | NUR ---
Read patient's TB test site. Negative result.
[2022-11-04 18:00] VITALS: BP 123/54
--- NOTE | 2022-11-04 18:05 | NUR ---
Problems reprioritized. Patient report given, questions answered & plan of care reviewed with Prudence. Addendum: 11/04/22 at 1824 by Julia Lowery RN Patient assignment changed, gave report to Shayna
--- NOTE | 2022-11-04 18:18 | NUR ---
Patient in room [facility] 348. I have received report from Julia ANTHONY and had the opportunity to ask questions and assume patient care.
[2022-11-04] MEDS: enoxaparin 30mg/0.3ml syringe SUBCUT SCH (20:08)
[2022-11-04 22:00] VITALS: BP 123/51
[2022-11-05 06:00] VITALS: BP 146/71
--- NOTE | 2022-11-05 06:45 | NUR ---
Problems reprioritized. Patient report given, questions answered & plan of care reviewed with Keerthi LEON.
[2022-11-05] MEDS: JUVEN Smoothie Arginine/Glut./Ca2+Bmb (Juven 19.3pkt) 240ml cup PO SCH (07:30)
[2022-11-05] MEDS: acetaminophen 325mg tablet PO PRN (07:31)
[2022-11-05] MEDS: levoTHYROXINE 25mcg tablet PO SCH (07:31)
[2022-11-05] MEDS: docusate sod 100mg capsule PO SCH (07:31)
[2022-11-05 07:58] LABS: BASOPHILS # (AUTO) 0.1 X10'3 (0-0.2); BASOPHILS % (AUTO) 0.6 % (0-1); EOSINOPHILS # (AUTO) 0.3 X10'3 (0-0.9); EOSINOPHILS % (AUTO) 3.6 % (0-6); HEMATOCRIT 27.6 % (42.0-52.0); HEMOGLOBIN 9.3 g/dl (14.0-17.9); LYMPHOCYTES # (AUTO) 3.1 X10'3 (1.1-4.8); LYMPHOCYTES % (AUTO) 34.4 % (21-51); MEAN CORPUSCULAR HEMOGLOBIN 34.2 PG (27.0-31.0); MEAN CORPUSCULAR HGB CONC 33.8 g/dL (33.0-36.5); MEAN CORPUSCULAR VOLUME 101.1 FL (78-98); MEAN PLATELET VOLUME 8.7 FL (7.4-10.4); MONOCYTES # (AUTO) 0.6 X10'3 (0-0.9); NEUTROPHILS # (AUTO) 4.9 X10'3 (1.8-7.7); NEUTROPHILS % (AUTO) 54.4 % (42-75); PLATELET COUNT 198 X10'3 (140-440); RED BLOOD COUNT 2.73 X10'6 (4.70-6.10); RED CELL DISTRIBUTION WIDTH 14.1 % (11.5-14.5); WHITE BLOOD COUNT 8.9 X10'3 (4.5-11.0)
[2022-11-05] MEDS: K and/or MAG REPLACEMENT MC SCH (08:00)
[2022-11-05 08:48] LABS: ALANINE AMINOTRANSFERASE 18 U/L (12-78); ALBUMIN 2.9 G/DL (3.4-5.0); ALBUMIN/GLOBULIN RATIO 0.9 (1.1-1.5); ALKALINE PHOSPHATASE 112 IU/L (46-116); ANION GAP 6 (8-16); ASPARTATE AMINO TRANSFERASE 22 U/L (10-37); BILIRUBIN,TOTAL 0.4 MG/DL (0.1-1.0); BLOOD UREA NITROGEN 39 MG/DL (7-18); BUN/CREATININE RATIO 33.3 (5.4-32.0); CALCIUM 8.1 MG/DL (8.5-10.1); CHLORIDE 106 MMOL/L (99-107); CREATININE 1.17 MG/DL (0.60-1.10); GLUCOSE 99 MG/DL (70-104); MAGNESIUM 2.2 MG/DL (1.5-2.4); PHOSPHORUS 2.7 MG/DL (2.3-4.5); POTASSIUM 4.5 MMOL/L (3.5-5.1); SODIUM 142 MMOL/L (135-145); TOTAL CARBON DIOXIDE 30.3 MMOL/L (24-32); TOTAL PROTEIN 6.3 G/DL (6.4-8.2); eGFR 59 ML/MIN
[2022-11-05 10:00] VITALS: BP 82/44
--- NOTE | 2022-11-05 13:14 | NUR ---
MESSAGE: [id number]-Yonathan Perry- pippa, no injuries, feels states he feels fine. Keerthi x [phone].
--- NOTE | 2022-11-05 13:30 | NUR ---
SLIVER FORMER documentation: I have reviewed and agree with all interventions, assessments performed and documented by Keerthi Phillips LVN.
== END 2022-11-05 14:23 | disposition home or self-care (01) | DRG 522 ==
LOC: ER 12:21 → ED HOLD 16:22 → SUR 3N 20:40
PROVIDERS: ADMIT Internal Medicine; ATTEND Internal Medicine
PROC: 0SRS0JA Replacement of Left Hip Joint, Femoral Surface with Synthetic Substitute, Uncemented, Open Approach (ICD-10-PCS; principal; 2022-10-07 14:46)
PROC: 30233N1 Transfusion of Nonautologous Red Blood Cells into Peripheral Vein, Percutaneous Approach (ICD-10-PCS; 2022-10-09)
DX: S72.002A Fracture of unspecified part of neck of left femur, initial encounter for closed fracture (principal); D62 Acute posthemorrhagic anemia; Z20.822 Contact with and (suspected) exposure to COVID-19; E03.9 Hypothyroidism, unspecified; E78.00 Pure hypercholesterolemia, unspecified; I12.9 Hypertensive chronic kidney disease with stage 1 through stage 4 chronic kidney disease, or unspecified chronic kidney disease; D53.9 Nutritional anemia, unspecified; W01.0XXA Fall on same level from slipping, tripping and stumbling without subsequent striking against object, initial encounter; R26.2 Difficulty in walking, not elsewhere classified; R54 Age-related physical debility; I25.10 Atherosclerotic heart disease of native coronary artery without angina pectoris; I95.1 Orthostatic hypotension; N18.30 Chronic kidney disease, stage 3 unspecified; Y92.015 Private garage of single-family (private) house as the place of occurrence of the external cause; Z85.038 Personal history of other malignant neoplasm of large intestine; Z90.49 Acquired absence of other specified parts of digestive tract; Y93.89 Activity, other specified; Y99.8 Other external cause status; Z79.899 Other long term (current) drug therapy
CPT/HCPCS: 96374; 96375; 99285; Z7506; Z7508; 36415; 36430; 71045; 73502; 80048; 80053; 81001; 81003; 82140; 82948; 83735; 83880; 84100; 84132; 84484; 85025; 85027; 85610; 85730; 86885; 86900; 86901; 86920; 87081; 87088; 87502; 87503; 87811; 92508; 92616; 93005; 94664; 94668; 94760; 97110; 97116; 97161; 97530; 97535; A4346; A4349; A4615; A4618; A5200; A6212; A6213; A6258; A6446; A6449; A7000; C1776; G0378; J0131; J0690; J1100; J1170; J1650; J2250; J2270; J2405; J2704; J3010; J3370; J3480; J3490; J7030; J7040; J7042; J7060; J7120; P9016